=== PATIENT | male | born 1950 | race Caucasian/White ===

== ENCOUNTER 2017-11-15 16:42 | Outpatient (CLI) | payer OTHER ==
[2017-11-15 17:30] LABS: Prothrombin Time 13.5 SEC (12.0-14.7)
== END 2017-11-15 16:43 | disposition home or self-care (01) ==
LOC: LABBT 16:42
PROVIDERS: ATTEND Internal Medicine Cardiovascular Disease
DX: Z01.818 Encounter for other preprocedural examination (principal); I48.3 Typical atrial flutter
CPT/HCPCS: 85610

== ENCOUNTER → 2017-11-20 | Day surgery (SDC) | payer OTHER ==
[2017-11-19 15:04] VITALS: BMI 23.3
[~2017-11-20] MED LIST: PHENYLEPHRINE-NS 100 MCG/ML 10 ML SYRINGE ONE; PROPOFOL 0 ML ONE
--- NOTE | 2017-11-20 16:32 | EKG ---
Test Reason : PREOP GLADIS/CARRDIOVER Blood Pressure : / mmHG Vent. Rate : 045 BPM Atrial Rate : 045 BPM P-R Int : 190 ms QRS Dur : 120 ms QT Int : 514 ms P-R-T Axes : 090 -71 034 degrees QTc Int : 444 ms Marked sinus bradycardia Left anterior fascicular block Left ventricular hypertrophy with QRS widening Abnormal ECG When compared with ECG of 28-FEB-2017 14:55, No significant change was found Confirmed by DR. Olga SCHMITT (3) on 11/20/2017 4:31:55 PM Referred By: MARIELA Confirmed By:DR. Olga SCHMITT
--- NOTE | 2017-11-20 16:39 | DIS ---
The patient was not admitted. He was seen in the outpatient facility where we had planned to undergo electrocardioversion of his atrial flutter; however, when I arrived in the lab, he was already back in sinus rhythm. He was scheduled to have GLADIS and cardioversion. I spoke to the greige goods marker who also did not feel he needed a GLADIS at this time either. So no procedure was performed. The GLADIS and cardioversion were both canceled. He will be discharged to home without any interventions or procedures being performed. DISCHARGE MEDICATIONS: Will be the same except we will decrease the Coreg or carvedilol to 6.25 mg in the morning and 12.5 mg in the evening. We will discontinue his amiodarone. Otherwise, he will continue his other medications which include Xarelto 20 mg a day, Aldactone 25 mg a day, lisinopril 2.5 mg a day, Lipitor 40 mg a day. So, we will decrease his carvedilol to 6.25 mg in the morning and 12.5 in the evening. Calling the new prescription for the small dose of the medications. He will follow up with the greige goods marker as planned. He is planned to have a procedure on 12/07/2017 for ablation of the atrial flutter. His other diagnoses include COPD, history of hypertension, history of cardiomyopathy with decreased ejection fraction about 30%-35%. The other medications will be the same. His diagnoses also the same. Procedures in the hospital were none. He said he did have an EKG which shows sinus bradycardia with a heart rate of 45 beats per minute. There were no difficulties or complications during his procedure. He was not given any anesthesia. The patient will be discharged home and he will follow up with greige goods marker. VLAD
== END ==
LOC: CCL 07:42
PROVIDERS: ATTEND Internal Medicine Cardiovascular Disease
DX: I48.4 Atypical atrial flutter (principal); I25.10 Atherosclerotic heart disease of native coronary artery without angina pectoris; E78.5 Hyperlipidemia, unspecified; I11.0 Hypertensive heart disease with heart failure; I50.9 Heart failure, unspecified; J44.9 Chronic obstructive pulmonary disease, unspecified; Z87.891 Personal history of nicotine dependence; Z79.82 Long term (current) use of aspirin; Z79.899 Other long term (current) drug therapy; Z88.8 Allergy status to other drugs, medicaments and biological substances; Z98.890 Other specified postprocedural states; Z53.8 Procedure and treatment not carried out for other reasons
CPT/HCPCS: 93005; 93010; J2704

== ENCOUNTER 2017-12-11 15:19 | Inpatient (IN) | payer OTHER, MEDICARE ==
[2017-12-11] MEDS ORDERED: Mag-Al 1200 mg/1200 mg/30 ML UDCUP PO PRN (19:25)
[2017-12-11] MEDS ORDERED: Senokot 8.6 MG TAB PO PRN (19:25)
[2017-12-11] MEDS ORDERED: Calcium Carbonate 500 MG ChewTAB PO PRN (19:25)
[2017-12-11] MEDS ORDERED: Bisacodyl 5 MG TAB PO PRN (19:25)
[2017-12-11] MEDS ORDERED: Bisacodyl 10 MG SUPP PR PRN (19:25)
[2017-12-11] MEDS ORDERED: Acetaminophen 325 MG TAB PO PRN (19:25)
[2017-12-11] MEDS ORDERED: Diltiazem 125 MG in Sodium Chloride 0.9% 100 ML IVPB SCH (19:45)
[2017-12-11 20:30] VITALS: BMI 23.0
[2017-12-11 20:31] LABS: Troponin I 0.503 ng/mL (< 0.028)
[2017-12-11] MEDS ORDERED: Carvedilol 6.25 MG TAB PO SCH (21:15)
[2017-12-11] MEDS ORDERED: Rivaroxaban 10 MG TAB PO SCH (21:15)
[2017-12-11] MEDS: Zolpidem Tartrate 5 MG TAB PO PRN (22:19)
[2017-12-11 22:55] LABS: Troponin I 0.463 ng/mL (< 0.028)
[2017-12-12 04:44] LABS: #Eosinphils 0.3 thou/uL (0.0-0.7); #Lymphocytes 2.3 thou/uL (1.20-3.40); #Monocytes 0.7 thou/uL (0.11-0.59); #Neutrophils 4.7 thou/uL (1.40-6.50); %Basophils 0.4 % (0.0-1.0); %Eosinophils 3.7 % (0.0-10.0); %Lymphocytes 28.4 % (21.0-51.0); %Monocytes 9.1 % (0.0-10.0); %Neutrophils 58.4 % (42.0-75.0); Hemoglobin 14.2 g/dL (14.0-18.0); Mean Corpuscular HGB CONC 34.5 g/dL (32.0-36.0); Mean Corpuscular Hemoglobin 32.6 pg (27.0-31.0); Mean Corpuscular Volume 94.5 fl (80.0-94.0); Mean Platelet Volume 7.8 fL (7.4-10.4); Platelet Count 270 thou/uL (130-400); RBC Distribution Width 11.6 % (11.5-14.5); Red Blood Cell (RBC) Count 4.34 mill/uL (4.70-6.10)
[2017-12-12 05:04] LABS: Anion Gap 10 mmol/L (10-20); BUN (Urea Nitrogen) 20 mg/dL (8.4-25.7); Calc. Creatinine Clearance 86 mL/min (70-130); Calcium 8.9 mg/dL (7.8-10.44); Carbon Dioxide 24 mmol/L (23-31); Chloride 107 mmol/L (98-107); Estimated GFR-MDRD 84; Glucose 115 mg/dL (80-115); Sodium 137 mmol/L (136-145)
[2017-12-12] MEDS ORDERED: Prevnar 13-Val Conj/PF 0.5 ML SYRINGE IM ONE (09:00)
[2017-12-12] MEDS ORDERED: Amiodarone HCl 150 MG, Admixture Fee 1 EACH in Dextrose 5% in Water 100 ML IVPB SCH (10:00)
[2017-12-12] MEDS: Amiodarone HCl 450 MG, Admixture Fee 1 EACH in Dextrose 5% in Water 250 ML IVPB SCH ×2 (10:35→20:05)
[2017-12-12 10:44] LABS: ALT (SGPT) 11 U/L (8-55); AST (SGOT) 13 U/L (5-34); Albumin 3.4 g/dL (3.4-4.8); Alkaline Phosphatase 78 U/L (40-150); Bilirubin, Direct 0.1 mg/dL (0.1-0.3); Bilirubin, Total 0.3 mg/dL (0.2-1.2); Protein, Total 5.9 g/dL (5.8-8.1)
[2017-12-12] MEDS ORDERED: Carvedilol 6.25 MG TAB PO SCH ×2 (15:15→21:00)
[2017-12-12] MEDS ORDERED: Digoxin 0.5 MG/2 ML AMP SLOW IVP SCH (17:00)
[2017-12-12 21:09] LABS: Troponin I 0.403 ng/mL (< 0.028)
[2017-12-12] MEDS: Rivaroxaban 10 MG TAB PO SCH (21:36)
--- NOTE | 2017-12-12 21:44 | CON ---
ELECTROPHYSIOLOGY CONSULTATION This is an electrophysiology consultation dictated as scribe for Dr. Jarod Kirkpatrick. REFERRING PHYSICIAN: Megan Sylvester MD REASON FOR CONSULTATION: Atrial flutter with rapid ventricular response. HISTORY OF PRESENT ILLNESS: Mr. Corley is a patient well known to our clinic with a history of atrial fibrillation as well as atypical atrial flutter, who has had multiple ablations and most recently on 12/07/[address] Marquez. Unfortunately, Mr. Corley did begin to experience dizziness and heart raci ng, and presented to the emergency room in [place]. He was found to be in atrial flutter with RVR at that time and was transferred to [facility] in [place] for further evaluation. Mr. Corley has rather complicated longstanding history of atrial fibrillation. As mentioned above, he recently underwent redo ablation for his recurrent atypical flutter on 12/07/[address] Marquez. A t that time, an atrial tachycardia was mapped to the roof of the left atrium, which was ablated landon ring sinus rhythm. The right inferior pulmonary vein required re-isolation as well as the right infe rior pulmonary vein and posterior wall of the left atrium, which were found to have regained electric al connection. The right superior and left pulmonary veins remained electrically silent from prior a blations. The lateral wall of the left atrium was ablated and isolated. The left atrial appendage w as ablated and isolated. Finally, the coronary sinus was ablated and distally isolated. He received a total of 21 minutes RF energy lesions delivered, had an uneventful recovery, and was discharged th e following morning. He has been on amiodarone in the past for arrhythmia suppression and has requir ed cardioversion on multiple occasions. He has been on Xarelto since his ablation. REVIEW OF SYSTEMS: Positive for dizziness, heart racing, mild shortness of breath. Otherwise, 12-po int review of systems was conducted and is negative aside from the above mentioned. PAST MEDICAL HISTORY: 1. Atrial fibrillation, status post multiple prior ablations, most recently on 12/07/2017 for a recu rrent atypical flutter. 2. Cardiomyopathy with an LVEF initially at 30%-35%, now improved to 45%-50%. 3. Chronic obstructive pulmonary disease. 4. Tobacco habituation, recently quit. 5. Atypical flutter as mentioned. 6. Hypertension. 7. Left pneumothorax. 8. Laminectomy. 9. Hernia repair. ALLERGIES: None. FAMILY HISTORY: Positive for hypertension. Negative for sudden cardiac or early onset of kamryn nary artery disease. HOME MEDICATIONS: Carvedilol 6.25 q.a.m. and 12.5 p.o. at bedtime, Lipitor 40 mg daily, lisinopril 2 .5 mg daily, spironolactone 25 mg daily, Xarelto 20 mg p.o. at bedtime, Lipitor 40 mg q.a.m., aspirin 81 mg daily. PHYSICAL EXAMINATION: VITAL SIGNS: Most recent vital signs, temperature 98.3, pulse 110, blood pressure 132/96, respiratio ns 18, oxygen saturation 98% on room air. GENERAL: Alert, oriented, in no apparent distress. HEENT: Speech is clear. Affect is appropriate. NECK: Supple without jugular venous distention. Carotids are without bruit. There is no lymphadeno dee dee. Thyroid is nonpalpable. PULMONARY: Lungs are clear to auscultation bilaterally. Respirations are even and unlabored. CARDIOVASCULAR: Heart rate is rapid and irregular. No significant murmur, rub, or gallop. EXTREMITIES: Warm and dry to touch without clubbing, cyanosis, or edema. ABDOMEN: Exam is benign. Positive bowel tones are noted throughout. NEUROLOGIC: Cranial nerves II-XII are grossly intact and nonfocal. DATABASE: EKG and telemetry were all personally reviewed and revealed atypical atrial flutter with v ariable AV conduction and rapid ventricular rates. Currently sustaining with heart rate approximatel y at 110, occasionally spiking to 140 beats per minute. LABORATORY DATA: Hemoglobin 14.2, hematocrit 41. Chemistry and electrolytes were all within normal limits. Serial troponins were conducted and peaked at 0.503 before trending down. TSH is 1.0556. IMPRESSION: 1. Recurrent atrial arrhythmias including atrial fibrillation and atypical atrial flutter with recen t ablation on 12/07/2017. Now presented in atrial flutter with rapid ventricular response as early r ecurrence post ablation. 2. Recent redo pulmonary vein antrum isolation on 12/07/2017 including re-isolation of the right inf erior pulmonary vein, posterior wall of the left atrium, and right inferior pulmonary vein as well as lateral wall of the left atrium. Left atrial appendage was ablated and isolated as well as the kamryn nary sinus. 3. Oral anticoagulation on Xarelto, lifelong, given left atrial appendage isolation and ablation. PLAN: An amiodarone bolus of 150 mg was given and amiodarone drip was started per protocol at 1 mg p er minute for 6 hours and then reduced to 0.5 mg per minute. We will continue with rate control at t his time, continue the oral anticoagulation, and plan for cardioversion prior to discharge if the pat ient remains in atrial flutter/atrial fibrillation. Upon discharge, he will require continued amioda aman therapy while he recovers from this most recent ablation. Thank you for allowing us to participate in the care of this patient.
[2017-12-12] MEDS: Zolpidem Tartrate 5 MG TAB PO PRN (23:19)
[2017-12-12] MEDS: Digoxin 0.5 MG/2 ML AMP SLOW IVP SCH (23:19)
--- NOTE | 2017-12-12 23:21 | PDOC.PN ---
- Subjective Encounter Start Date: 12/12/17 Encounter Start Time: 11:00 Subjective: f/u recurrent afib with RVR. nsg notes rev, viviana ovn, no new c/o -: currently no palpitations, CP, SOB - Objective Resuscitation Status: Resuscitation Status FULL:Full Resuscitation Vital Signs & Weight: Vital Signs (12 hours) Temp Pulse Resp BP BP Pulse Ox 12/12/17 21:36 147/84 H 12/12/17 17:01 125 H 12/12/17 15:19 98.3 F 110 H 18 132/96 H 98 12/12/17 15:16 132/96 H 12/12/17 11:26 98.9 F 77 17 132/65 96 Weight Weight 169 lb 14.4 oz I&O: 12/11/17 12/12/17 12/13/17 06:59 06:59 06:59 Intake Total 295 Output Total 300 650 Balance -5 -650 Result Diagrams: 12/13/17 04:00 12/12/17 04:00 Phys Exam - Physical Examination Constitutional: NAD HEENT: moist MMs, sclera anicteric Neck: no nodes, no JVD Respiratory: no wheezing, no rales, no rhonchi, clear to auscultation bilateral Cardiovascular: no rub Musculoskeletal: no edema, pulses present Neurological: moves all 4 limbs Psychiatric: normal affect, A&O x 3 Dx/Plan - Plan * recurrent afib with RVR * apprec card c/s * apprec EP C/s * on adm was initially on diltiazem which has been converted/ transitioned to amiodarone * continue on tele * hemodynamically stable diet: cardiac activity: as rodriguez dvt ppx Review of Systems - Medications/Allergies Allergies/Adverse Reactions: Allergies Allergy/AdvReac Type Severity Reaction Status Date / Time albuterol [From Combivent] Allergy SOB Verified 11/19/17 08:52 ipratropium [From Combivent] Allergy SOB Verified 11/19/17 08:52 Medications: Current Medications Acetaminophen (Tylenol) 650 mg PO Q4H PRN PRN Reason: Headache/Fever or Pain Al Hydroxide/Mg Hydroxide (Maalox) 30 ml PO Q6H PRN PRN Reason: Heartburn or Indigestion Bisacodyl (Dulcolax) 10 mg PO DAILYPRN PRN PRN Reason: Constipation Bisacodyl (Dulcolax) 10 mg CA Q24H PRN PRN Reason: Constipation Calcium Carbonate (Tums) 1,000 mg PO Q4H PRN PRN Reason: Heartburn or Indigestion Carvedilol (Coreg) 12.5 mg PO HS [facility] Last Admin: 12/12/17 21:36 Dose: 12.5 mg Carvedilol (Coreg) 12.5 mg PO HS ANGIE Digoxin (Lanoxin) 0.25 mg SLOW IVP 0500,2300 ANGIE Stop: 12/13/17 05:01 Last Admin: 12/12/17 23:19 Dose: 0.25 mg Digoxin (Lanoxin) 0.125 mg PO QAM ANGIE Amiodarone HCl 450 mg/Miscellaneous Medication 1 each/ Dextrose/Water 259 mls @ 0 mls/hr IVPB INF ANGIE; As Directed PRN Reason: Protocol Last Admin: 12/12/17 20:05 Dose: 259 mls Rivaroxaban (Xarelto) 20 mg PO HS [facility] Last Admin: 12/12/17 21:36 Dose: 20 mg Senna (Senokot) 2 tab PO HSPRN PRN PRN Reason: Constipation Zolpidem Tartrate (Ambien) 5 mg PO HSPRN PRN PRN Reason: Insomnia Last Admin: 12/12/17 23:19 Dose: 5 mg
[2017-12-12 23:40] LABS: Critical Call Chem Troponin I RESULT DECREASING; Troponin I 0.388 ng/mL (< 0.028)
[2017-12-13 04:59] LABS: #Eosinphils 0.3 thou/uL (0.0-0.7); #Lymphocytes 2.6 thou/uL (1.20-3.40); #Monocytes 0.8 thou/uL (0.11-0.59); #Neutrophils 5.7 thou/uL (1.40-6.50); %Basophils 0.4 % (0.0-1.0); %Eosinophils 3.5 % (0.0-10.0); %Lymphocytes 27.6 % (21.0-51.0); %Monocytes 8.6 % (0.0-10.0); Hemoglobin 14.5 g/dL (14.0-18.0); Mean Corpuscular Hemoglobin 31.9 pg (27.0-31.0); Mean Corpuscular Volume 93.8 fl (80.0-94.0); Mean Platelet Volume 7.6 fL (7.4-10.4); Platelet Count 280 thou/uL (130-400); RBC Distribution Width 11.5 % (11.5-14.5); Red Blood Cell (RBC) Count 4.54 mill/uL (4.70-6.10); White Blood Cell (WBC) Count 9.4 thou/uL (4.8-10.8)
[2017-12-13] MEDS: Digoxin 0.5 MG/2 ML AMP SLOW IVP SCH (05:15)
[2017-12-13 05:19] LABS: Anion Gap 10 mmol/L (10-20); BUN (Urea Nitrogen) 19 mg/dL (8.4-25.7); Calc. Creatinine Clearance 91 mL/min (70-130); Calcium 9.5 mg/dL (7.8-10.44); Carbon Dioxide 24 mmol/L (23-31); Chloride 106 mmol/L (98-107); Estimated GFR-MDRD 90; Glucose 95 mg/dL (80-115); Potassium 4.2 mmol/L (3.5-5.1); Sodium 136 mmol/L (136-145)
[2017-12-13] MEDS: Digoxin 0.125 MG TAB PO SCH (08:19)
[2017-12-13] MEDS: Amiodarone 200 MG TAB PO SCH ×2 (08:36→20:34)
--- NOTE | 2017-12-13 08:45 | PRG ---
DATE OF SERVICE: 12/13/2017 REFERRING PHYSICIAN: Dr. Megan Sylvester SUBJECTIVE: Mr. Corley has less palpations today. He denies dizziness or loss of consciousness. He i s still on IV amiodarone drip. He has no dizziness, loss of consciousness, no stroke-like symptoms, no bleeding issues. OBJECTIVE: VITAL SIGNS: Blood pressure is 150/77, heart rate 88, respiration 17, temperature 97.8 degrees Fahre nheit. GENERAL: He is an alert and oriented man in no apparent distress. NECK: Supple. Jugular veins not distended. CHEST: Coarse without crackles. CARDIOVASCULAR: Heart sounds are irregularly irregular. CARDIOVASCULAR: S1, S2, variable. No murmur or gallop. ABDOMEN: Benign. Bowel sounds positive. EXTREMITIES: Lower extremity without edema, clubbing or cyanosis. DATABASE: The telemetry strips reveal atrial flutter with controlled ventricular rates in the 60s. LABORATORY DATA: White count is 9.4, hemoglobin 14 and 40.5, platelet count is 280. Sodium 136, pot assium 4.2, BUN is 19, creatinine 0.85. Troponins are 0.04 and 0.04 consecutively. ASSESSMENT AND PLAN: Mr. Jaime is a 67-year-old man with history of paroxysmal atrial arrhythmias, ca rdiomyopathy with a prior LVEF 30-35% and improving to 45-50%. He has undergone recent pulmonary isidro ous antrum isolation on 12/07/2017. He was placed on IV amiodarone drip and his rate is now well con trolled. He has not stopped taking Xarelto. Has a recent early recurrence. The patient has recent ablation and the recurrence of arrhythmia. I think cardioversion on amiodarone is reasonable. We ca n consider transition to Multaq. I would like to continue amiodarone loading for 1 more day and cardioversion planned Sunday.
--- NOTE | 2017-12-13 09:35 | PDOC.PN ---
- Subjective Encounter Start Date: 12/13/17 Encounter Start Time: 09:33 Mr. Corley was seen today in follow-up. He had a little dizziness last night, but none this morning. He denies chest pain or dyspnea. - Objective Resuscitation Status: Resuscitation Status FULL:Full Resuscitation MAR Reviewed: Yes Vital Signs & Weight: Vital Signs (12 hours) Temp Pulse Resp BP BP Pulse Ox 12/13/17 08:19 79 12/13/17 08:16 97.6 F 79 16 139/79 95 12/13/17 05:15 88 12/13/17 03:45 97.8 F 88 17 158/77 H 95 12/12/17 23:19 125 H 12/12/17 21:36 147/84 H Weight Weight 168 lb 1.6 oz I&O: 12/12/17 12/13/17 12/14/17 06:59 06:59 06:59 Intake Total 295 1160 Output Total 300 2300 325 Balance -5 -1140 -325 Result Diagrams: 12/13/17 04:00 12/13/17 04:00 Phys Exam - Physical Examination HEENT: PERRLA, sclera anicteric Respiratory: no wheezing, no rales, no rhonchi Cardiovascular: no significant murmur, no rub, irregular Gastrointestinal: soft, non-tender, positive bowel sounds Musculoskeletal: no edema Dx/Plan (1) Atrial fibrillation with RVR Code(s): I48.91 - UNSPECIFIED ATRIAL FIBRILLATION Status: Acute Comment: NSR post cardioversion, continue Amiodarone 200mg daily, Diltiazem 120mg BID and Coreg, continue Xarelto (2) Ischemic cardiomyopathy Code(s): I25.5 - ISCHEMIC CARDIOMYOPATHY Status: Chronic Comment: EF 30-35% from echo 12/21/16, GLADIS 02/28/17 - EF 45%, continue Lisinopril, Coreg, ASA - Plan * AFIB with RVR- his heart rate is controlled- plan is for cardioversion tomorrow * CAD- stable * Chronic systolic heart failure- compensated * HTN - blood pressure is stable .
--- NOTE | 2017-12-13 20:22 | EKG ---
Test Reason : STAT Blood Pressure : / mmHG Vent. Rate : 116 BPM Atrial Rate : 300 BPM P-R Int : 000 ms QRS Dur : 120 ms QT Int : 338 ms P-R-T Axes : 000 -64 089 degrees QTc Int : 469 ms Atrial flutter with variable A-V block Left anterior fascicular block Nonspecific ST and T wave abnormality Abnormal ECG When compared with ECG of 11-DEC-2017 15:26, (Unconfirmed) No significant change was found Confirmed by MURRAY SALEEM, SMarkel (4) on 12/13/2017 8:22:03 PM Referred By: JAYNA Confirmed By:DR. Bety GAO MD
--- NOTE | 2017-12-13 20:26 | EKG ---
Test Reason : Blood Pressure : / mmHG Vent. Rate : 073 BPM Atrial Rate : 277 BPM P-R Int : 000 ms QRS Dur : 116 ms QT Int : 394 ms P-R-T Axes : 092 -65 078 degrees QTc Int : 434 ms Atrial flutter Left anterior fascicular block Nonspecific ST abnormality Abnormal ECG When compared with ECG of 12-DEC-2017 17:24, (Unconfirmed) Vent. rate has decreased BY 43 BPM Confirmed by MURRAY SALEEM, SMarkel (4) on 12/13/2017 8:26:23 PM Referred By: KIM Confirmed By:DR. Bety GAO MD
[2017-12-13] MEDS: Rivaroxaban 10 MG TAB PO SCH (20:34)
[2017-12-13] MEDS ORDERED: Carvedilol 6.25 MG TAB PO SCH (21:00)
[2017-12-13] MEDS: Zolpidem Tartrate 5 MG TAB PO PRN (22:26)
[2017-12-14 03:54] LABS: #Eosinphils 0.3 thou/uL (0.0-0.7); #Lymphocytes 2.5 thou/uL (1.20-3.40); #Monocytes 0.7 thou/uL (0.11-0.59); #Neutrophils 4.6 thou/uL (1.40-6.50); %Basophils 0.4 % (0.0-1.0); %Eosinophils 3.2 % (0.0-10.0); %Lymphocytes 30.5 % (21.0-51.0); %Neutrophils 56.9 % (42.0-75.0); Hemoglobin 14.5 g/dL (14.0-18.0); Mean Corpuscular HGB CONC 33.8 g/dL (32.0-36.0); Mean Corpuscular Hemoglobin 31.7 pg (27.0-31.0); Mean Corpuscular Volume 93.7 fl (80.0-94.0); Mean Platelet Volume 7.6 fL (7.4-10.4); Platelet Count 282 thou/uL (130-400); RBC Distribution Width 11.7 % (11.5-14.5); Red Blood Cell (RBC) Count 4.58 mill/uL (4.70-6.10)
[2017-12-14 04:09] LABS: Anion Gap 12 mmol/L (10-20); BUN (Urea Nitrogen) 19 mg/dL (8.4-25.7); Calc. Creatinine Clearance 80 mL/min (70-130); Calcium 9.5 mg/dL (7.8-10.44); Carbon Dioxide 24 mmol/L (23-31); Chloride 104 mmol/L (98-107); Estimated GFR-MDRD 79; Glucose 103 mg/dL (80-115); Potassium 4.1 mmol/L (3.5-5.1); Sodium 136 mmol/L (136-145)
[2017-12-14] MEDS: Amiodarone 200 MG TAB PO SCH (10:26)
[2017-12-14] MEDS: Digoxin 0.125 MG TAB PO SCH (10:26)
--- NOTE | 2017-12-14 10:30 | PDOC.PN ---
- Subjective Encounter Start Date: 12/14/17 Encounter Start Time: 10:28 Mr. Corley was seen today in follow-up. He is frustrated about his condition. He has converted back to sinus today. - Objective Resuscitation Status: Resuscitation Status FULL:Full Resuscitation MAR Reviewed: Yes Vital Signs & Weight: Vital Signs (12 hours) Temp Pulse Resp BP Pulse Ox 12/14/17 10:26 53 L 12/14/17 08:01 98.6 F 61 16 128/67 97 12/14/17 08:00 98.6 F 61 16 12/14/17 04:59 97.8 F 51 L 18 124/65 96 Weight Weight 168 lb 1.6 oz I&O: 12/13/17 12/14/17 12/15/17 06:59 06:59 06:59 Intake Total 1160 480 Output Total 2300 650 Balance -1140 -170 Result Diagrams: 12/14/17 03:13 12/14/17 03:13 Phys Exam - Physical Examination HEENT: PERRLA Respiratory: no wheezing, no rales, no rhonchi, clear to auscultation bilateral Cardiovascular: RRR, no significant murmur, no rub Gastrointestinal: soft, non-tender, positive bowel sounds Musculoskeletal: no edema Dx/Plan (1) Atrial fibrillation with RVR Code(s): I48.91 - UNSPECIFIED ATRIAL FIBRILLATION Status: Acute Comment: NSR post cardioversion, continue Amiodarone 200mg daily, Diltiazem 120mg BID and Coreg, continue Xarelto (2) Ischemic cardiomyopathy Code(s): I25.5 - ISCHEMIC CARDIOMYOPATHY Status: Chronic Comment: EF 30-35% from echo 12/21/16, GLADIS 02/28/17 - EF 45%, continue Lisinopril, Coreg, ASA (3) Chronic obstructive pulmonary disease (COPD) Status: Acute (4) Hypertension Code(s): I10 - ESSENTIAL (PRIMARY) HYPERTENSION Status: Acute - Plan * AFIB- patient was scheduled to have a cardioversion today, but he converted back to sinus spontaneously * Will await further recommendations from EP. * HTN- blood pressure is controlled * COPD- stable
--- NOTE | 2017-12-14 14:45 | PDOC.CTH ---
<Susana Vaughn - Last Filed: 12/14/17 14:41> Cardiology Progress Note - Subjective EP progress note: Patient seen and evaluated. Starting feeling better last evening. no cardiac complaints today. Eager to go home. 10 point ROS unremarkable. - Objective Vital Signs Temp Pulse Resp BP Pulse Ox 12/14/17 11:02 98.0 F 16 130/71 98 12/14/17 10:26 53 L 12/14/17 08:01 98.6 F 61 16 128/67 97 12/14/17 08:00 98.6 F 61 16 12/14/17 04:59 97.8 F 51 L 18 124/65 96 Weight 168 lb 1.6 oz 12/13/17 12/14/17 12/15/17 06:59 06:59 06:59 Intake Total 1160 480 Output Total 2300 650 Balance -1140 -170 - Physical Examination General/Neuro: alert & oriented x3, NAD Neck: carotid US brisk, no JVD present Lungs: unlabored respirations Heart: PMI normal, RRR Abdomen: NT/ND, soft - Telemetry Telemetry Rhythm: NSR with occ. PAC - Labs Result Diagrams: 12/14/17 03:13 12/14/17 03:13 Troponin/CKMB Troponin I 0.388 ng/mL (< 0.028) H* 12/12/17 23:06 - Assessment/Plan 1. Early recurrence of atrial flutter/fibrillation with RVR. Loaded on amiodarone. rate controlled with digoxin. Converted to NSR last night around 1830. Now rates in 50s & digoxin withheld this AM. Recommend DC without digoxin. Amiodarone 200mg BID x 2 weeks, then 200mg daily. 2. OAC- continue indefinitely given history of left atrial appendage isolation & ablation. Ok for DC by EP. 4-6 week follow up requested. <Jarod Kirkpatrick - Last Filed: 12/14/17 16:15> Cardiology Progress Note - Objective Vital Signs Temp Pulse Resp BP Pulse Ox 12/14/17 15:58 98.5 F 61 16 136/70 98 12/14/17 11:02 98.0 F 16 130/71 98 12/14/17 10:26 53 L 12/14/17 08:01 98.6 F 61 16 128/67 97 12/14/17 08:00 98.6 F 61 16 12/14/17 04:59 97.8 F 51 L 18 124/65 96 Weight 168 lb 1.6 oz 12/13/17 12/14/17 12/15/17 06:59 06:59 06:59 Intake Total 1160 480 Output Total 2300 650 Balance -1140 -170 - Labs Result Diagrams: 12/14/17 03:13 12/14/17 03:13 Troponin/CKMB Troponin I 0.388 ng/mL (< 0.028) H* 12/12/17 23:06 Attending Addendum - Attending Addendum Date/Time: 12/14/17 1619 I personally evaluated the patient and discussed the management with Ms Vaughn. I agree with the History, Examination, Assessment and Plan documented above with any addition or exceptions noted below.
[2017-12-14 16:01] VITALS: BP 136/70; TEMP 98.5
--- NOTE | 2017-12-14 22:15 | EKG ---
Test Reason : Blood Pressure : / mmHG Vent. Rate : 057 BPM Atrial Rate : 057 BPM P-R Int : 194 ms QRS Dur : 120 ms QT Int : 452 ms P-R-T Axes : 088 -69 026 degrees QTc Int : 439 ms Sinus bradycardia Left anterior fascicular block Abnormal ECG When compared with ECG of 13-DEC-2017 06:36, Sinus rhythm has replaced Atrial flutter Nonspecific T wave abnormality now evident in Inferior leads Confirmed by MURRAY SALEEM, DR. Albert (4) on 12/14/2017 10:15:07 PM Referred By: KIM Confirmed By:DR. Bety GAO MD
--- NOTE | 2017-12-15 02:47 | DIS ---
DATE OF ADMISSION: 12/11/2017 DATE OF DISCHARGE: 12/14/2017 DISCHARGE DISPOSITION: Home. PRIMARY DISCHARGE DIAGNOSES: 1. Atrial fibrillation. 2. History of cardiomyopathy with an ejection fraction of 45%-50%. 3. Chronic obstructive pulmonary disease. 4. Hypertension. DISCHARGE MEDICATIONS: Include amiodarone 200 mg twice a day for 2 weeks followed by 200 mg daily, a spirin 81 mg daily, Lipitor 40 mg daily, carvedilol 12.5 mg at bedtime, lisinopril 2.5 mg daily, Xare lto 20 mg at bedtime, and Aldactone 25 mg a day. CODE STATUS: FULL CODE. ALLERGIES: ALBUTEROL and IPRATROPIUM. HOSPITAL COURSE: Mr. Corley is a 67-year-old gentleman who presented to the emergency room in atrial f ibrillation with rapid ventricular response. He was admitted and started on IV Cardizem and then swi tched to amiodarone. The plan was for the patient to undergo elective cardioversion after he was sta bilized on the amiodarone; however, the patient converted spontaneously to sinus rhythm and the hope is that he will continue in sinus rhythm on amiodarone. He is to continue Xarelto for stroke prevent ion and will follow up with Dr. Kirkpatrick in the outpatient setting as well as his primary entry level staff accountant Dr Markel Sylvester.
== END 2017-12-14 16:59 | disposition home or self-care (01) | DRG 310 ==
LOC: ERS 15:19 → 2NO 16:33
PROVIDERS: ADMIT Emergency Medicine; ATTEND Emergency Medicine
DX: I48.0 Paroxysmal atrial fibrillation (principal); J44.9 Chronic obstructive pulmonary disease, unspecified; I10 Essential (primary) hypertension; I25.5 Ischemic cardiomyopathy
CPT/HCPCS: 36415; 80048; 80076; 83735; 84443; 84484; 85025; 93005; 93010; 96365; 96366; J0282; J1160; J7050; J7070

== ENCOUNTER 2017-12-27 12:40 | Emergency (ER) | payer OTHER, MEDICARE ==
[2017-12-27 13:19] LABS: #Eosinphils 0.1 thou/uL (0.0-0.7); #Lymphocytes 2.5 thou/uL (1.20-3.40); #Monocytes 0.8 thou/uL (0.11-0.59); #Neutrophils 5.2 thou/uL (1.40-6.50); %Basophils 0.6 % (0.0-1.0); %Lymphocytes 29.1 % (21.0-51.0); %Monocytes 8.8 % (0.0-10.0); %Neutrophils 60.5 % (42.0-75.0); Hemoglobin 14.3 g/dL (14.0-18.0); Mean Corpuscular HGB CONC 33.7 g/dL (32.0-36.0); Mean Corpuscular Hemoglobin 31.7 pg (27.0-31.0); Mean Corpuscular Volume 94.1 fl (80.0-94.0); Mean Platelet Volume 7.4 fL (7.4-10.4); Platelet Count 296 thou/uL (130-400); RBC Distribution Width 11.7 % (11.5-14.5); White Blood Cell (WBC) Count 8.5 thou/uL (4.8-10.8)
--- NOTE | 2017-12-27 13:28 | RAD ---
CHEST 1 VIEW: HISTORY: Chest pain. Dyspnea. COMPARISON: 12/17/16. FINDINGS: Cardiac silhouette is magnified and enlarged. Left hemidiaphragm is now elevated with atelectasis at the left base. Mediastinum remains midline. No lobar consolidation or pneumothorax are apparent. IMPRESSION: Interval change in left hemidiaphragm with significant elevation and atelectasis at the left base. P lease consider CT chest for evaluation mediastinum and the possibility of a mass resulting in diaphra gmatic paralysis. POS: SERGIO
[2017-12-27 13:42] LABS: ALT (SGPT) 15 U/L (8-55); AST (SGOT) 12 U/L (5-34); Albumin 4.3 g/dL (3.4-4.8); Alkaline Phosphatase 78 U/L (40-150); Anion Gap 11 mmol/L (10-20); BUN (Urea Nitrogen) 13 mg/dL (8.4-25.7); Bilirubin, Total 0.9 mg/dL (0.2-1.2); Calc. Creatinine Clearance 0 mL/min (70-130); Calcium 9.6 mg/dL (7.8-10.44); Carbon Dioxide 27 mmol/L (23-31); Chloride 101 mmol/L (98-107); Estimated GFR-MDRD 69; Globulin 2.7 g/dL (2.4-3.5); Glucose 106 mg/dL (80-115); Potassium 4.5 mmol/L (3.5-5.1); Sodium 134 mmol/L (136-145)
[2017-12-27 13:46] LABS: CKMB 1.1 ng/mL (0-6.6); Troponin I Less than 0.010 ng/mL (< 0.028)
[2017-12-27 13:55] LABS: Magnesium 2.2 mg/dL (1.6-2.6)
[2017-12-27] MEDS ORDERED: Dicyclomine 20 MG TAB ONE (14:15)
--- NOTE | 2017-12-27 15:07 | CT ---
CT CHEST WITH IV CONTRAST: HISTORY: Abnormal chest radiograph. Elevated hemidiaphragm. COMPARISON: Chest radiograph same date. FINDINGS: Elevation of left hemidiaphragm is confirmed with linear atelectasis at the left base. No mediastina l mass or adenopathy are apparent. There is bovine origin of the great vessels at the aortic arch with aortic calcification. Small cyst ic lesion within the right thyroid gland. Lungs are hyperinflated. Within th partially visualized upper abdomen, a heterogeneous mass at the left adrenal gland is 2.9 c m greatest diameter. A 1.8 cm heterogeneous mass arises from the right adrenal glands. IMPRESSION: 1. Left hemidiaphragm elevation has occurred in a 1-year interval. CT chest shows no apparent cause . 2. Bilateral adrenal masses, measuring up to 2.9 cm on the left. The size of he left adrenal mass a nd increased density argue against benign adenomas, although a benign process cannot be excluded on t his exam. Please consider radionuclide PET scan to evaluate for hypermetabolic activity of the adren al masses or dedicated CT of the adrenal glands, with and without IV contrast, for better characteriz e. 3. Chronic obstructive pulmonary disease. 4. Atherosclerosis. POS: SERGIO
[2017-12-27] MEDS ORDERED: Iopamidol 370 76% 100 ML VIAL ONE (16:17)
== END 2017-12-27 13:25 | disposition home or self-care (01) ==
LOC: ERS 12:40
DX: R00.1 Bradycardia, unspecified (principal); R19.7 Diarrhea, unspecified; E27.9 Disorder of adrenal gland, unspecified; R11.2 Nausea with vomiting, unspecified; J44.9 Chronic obstructive pulmonary disease, unspecified; K21.9 Gastro-esophageal reflux disease without esophagitis; Z87.891 Personal history of nicotine dependence; Z79.01 Long term (current) use of anticoagulants; Z79.82 Long term (current) use of aspirin; Z79.899 Other long term (current) drug therapy
CPT/HCPCS: 36415; 71045; 71260; 80053; 82553; 83690; 83735; 83880; 84484; 85025; 93005

== ENCOUNTER 2019-10-21 22:19 | Inpatient (IN) | payer MEDICARE ==
[2019-10-21] MEDS ORDERED: Midazolam HCl 5 mg/ml Vial ONE (22:22)
[2019-10-21 22:45] LABS: #Basophils 0.1 thou/uL (0.0-0.2); #Eosinphils 0.1 thou/uL (0.0-0.7); #Lymphocytes 2.8 thou/uL (1.20-3.40); #Neutrophils 7.9 thou/uL (1.40-6.50); %Basophils 0.7 % (0.0-1.0); %Eosinophils 0.8 % (0.0-10.0); %Lymphocytes 23.2 % (21.0-51.0); %Monocytes 8.1 % (0.0-10.0); %Neutrophils 67.1 % (42.0-75.0); Hemoglobin 15.2 g/dL (14.0-18.0); Mean Corpuscular HGB CONC 33.4 g/dL (32.0-36.0); Mean Corpuscular Volume 95.8 fL (78.0-98.0); Mean Platelet Volume 8.4 fL (7.4-10.4); Platelet Count 261 thou/uL (130-400); RBC Distribution Width 12.5 % (11.5-14.5); Red Blood Cell (RBC) Count 4.75 mill/uL (4.70-6.10); White Blood Cell (WBC) Count 11.8 thou/uL (4.8-10.8)
--- NOTE | 2019-10-21 22:49 | RAD ---
RADIOGRAPH CHEST 1 VIEW: DATE: 10/21/2019 HISTORY: 69-year-old male with chest pain FINDINGS: There is no airspace density, pulmonary edema, or pneumothorax. The lateral costophrenic angles are n ot effaced. Defibrillation paddles overlie the chest bilaterally. IMPRESSION: No acute pulmonary findings.
[2019-10-21 23:08] LABS: ALT (SGPT) 18 U/L (8-55); AST (SGOT) 14 U/L (5-34); Albumin 4.3 g/dL (3.4-4.8); Alkaline Phosphatase 75 U/L (40-110); Anion Gap 15 mmol/L (10-20); BUN (Urea Nitrogen) 24 mg/dL (8.4-25.7); Bilirubin, Total 0.8 mg/dL (0.2-1.2); CK (CPK) 77 U/L (30-200); Calc. Creatinine Clearance 0 mL/min (70-130); Calcium 9.7 mg/dL (7.8-10.44); Carbon Dioxide 26 mmol/L (23-31); Chloride 103 mmol/L (98-107); Estimated GFR-MDRD 27; Globulin 2.5 g/dL (2.4-3.5); Glucose 95 mg/dL (80-115); Potassium 4.5 mmol/L (3.5-5.1); Protein, Total 6.8 g/dL (5.8-8.1); Sodium 139 mmol/L (136-145)
[2019-10-21] MEDS ORDERED: Aspirin Chewable 81 MG TAB ONE (23:10)
[2019-10-21 23:28] LABS: CKMB 3.3 ng/mL (0-6.6)
[2019-10-21] MEDS ORDERED: Sodium Chloride 0.9% 1,000 ML IV SCH (23:59)
[2019-10-21] MEDS ORDERED: Enoxaparin Sodium 60 MG/0.6 ML SYRINGE SC SCH (23:59)
--- NOTE | 2019-10-22 00:51 | HP ---
CHIEF COMPLAINT: Chest pain. HISTORY OF PRESENT ILLNESS: Mr. Jaime is a 69-year-old male with past medical history of cardiac arrhythmias, atrial flutter, SVT, atrial fibrillation, hypertension, hyperlipidemia, and GERD, presents to the emergency room with chest pain, pressure in nature. In the emergency room, the patient was found to be in wide-complex tachycardia, hypotensive, urgent cardioversion was performed by the ED physician. The patient was converted to sinus rhythm. Current blood pressure is 107/64. Heart rate is 67. The patient's oxygen saturation is 100% on 2 L/minute nasal cannula. The patient is feeling better already. The patient is going to be admitted to hospital for further management. PAST MEDICAL HISTORY: 1. Atrial fibrillation, flutter, SVT. 2. Pneumothorax. 3. COPD. 4. GERD. 5. Hypertension. 6. Hyperlipidemia. PAST SURGICAL HISTORY: 1. Laminectomy. 2. Tonsillectomy. 3. Hernia repair. 4. Vasectomy. 5. Hand surgery. 6. Colonoscopy. 7. Cataract surgery. SOCIAL HISTORY: The patient currently uses tobacco. Smokes cigarettes. The patient denies alcohol use or drug use. Lives at home alone. FAMILY HISTORY: Reviewed and noncontributory. ALLERGIES: NO KNOWN ALLERGIES. HOME MEDICATIONS: Please see home medication reconciliation form for updated medications. The home medication includes metoprolol and amiodarone, will need to be verified. The patient denies being on anticoagulants this time. REVIEW OF SYSTEMS: Review of 14 systems negative except what is mentioned in history of present illness. PHYSICAL EXAMINATION: GENERAL: The patient is awake, alert, oriented, does not appear to be in acute distress. VITAL SIGNS: Blood pressure 107/64, pulse is 75, respiratory rate is 16, oxygen saturation 100%, and temperature is 98. HEAD AND NECK: Normocephalic and atraumatic. NECK: Supple. No JVD. CHEST: Fair bilateral air entry. HEART: S1 and S2, regular. ABDOMEN: Soft, nontender. Bowel sounds present. NEUROLOGIC: Awake, alert, oriented. No focal deficits. PSYCH: Unable to assess. EXTREMITIES: No clubbing or cyanosis. LABORATORY DATA: Electrolytes; creatinine is elevated 2.38, baseline creatinine is 1.0. Troponin 0.03. ASSESSMENT: 1. Acute chest pain. 2. Acute renal failure. 3. Unstable wide complex/ventricular tachycardia, status post cardioversion. 4. Hypertension. 5. Hyperlipidemia. 6. Chronic obstructive pulmonary disease. 7. History of cardiac arrhythmias. PLAN: 1. Admit. 2. Serial troponins. 3. Consult the patient's cardiac folding machine feeder for evaluation and further recommendations. 4. Reconcile home medications. 5. DVT prophylaxis as appropriate. 6. Expected length of stay 2 midnights or more. Job ID: [id number]
[2019-10-22] MEDS ORDERED: Melatonin 3 MG TAB PO PRN (01:07)
[2019-10-22] MEDS ORDERED: diphenhydrAMINE 25 MG CAP PO SCH (01:15)
[2019-10-22] MEDS ORDERED: Melatonin 3 MG TAB PO SCH (01:15)
[2019-10-22 01:25] VITALS: BMI 22.2
[2019-10-22 05:27] LABS: Anion Gap 13 mmol/L (10-20); BUN (Urea Nitrogen) 26 mg/dL (8.4-25.7); Calc. Creatinine Clearance 47 mL/min (70-130); Calcium 8.8 mg/dL (7.8-10.44); Carbon Dioxide 22 mmol/L (23-31); Chloride 107 mmol/L (98-107); Estimated GFR-MDRD 45; Glucose 84 mg/dL (80-115); Potassium 4.7 mmol/L (3.5-5.1); Sodium 137 mmol/L (136-145)
[2019-10-22] MEDS: Famotidine 20 MG TAB PO SCH (08:21)
[2019-10-22] MEDS ORDERED: Aspirin 325 mg Enteric Coated Tablet PO SCH (09:00)
[2019-10-22] MEDS ORDERED: Communication Order-Pharmacy FS SCH (09:45)
[2019-10-22] MEDS ORDERED: Iopamidol 370 76% 100 ML VIAL ONE (09:55)
[2019-10-22] MEDS ORDERED: Iopamidol 370 76% 50 ML VIAL FS ONE (09:55)
[2019-10-22] MEDS ORDERED: Dexamethasone 20 MG/5 ML VIAL ONE (10:45)
[2019-10-22] MEDS ORDERED: Heparin 10,000 UNITS/1 ML VIAL ONE (11:03)
[2019-10-22] MEDS ORDERED: Nitroglycerin 100MG/250ML BOT 250 ML ONE (11:03)
[2019-10-22] MEDS ORDERED: Verapamil 5 MG/2 ML VIAL ONE (11:03)
[2019-10-22] MEDS: Sodium Chloride 0.9% 1,000 ML IV SCH ×2 (11:05→18:02)
[2019-10-22] MEDS ORDERED: Amiodarone 200 MG TAB PO SCH (11:45)
[2019-10-22] MEDS ORDERED: Midazolam HCl 2 mg/2 ml Vial ONE ×4 (12:04→15:41)
[2019-10-22] MEDS ORDERED: Acetaminophen/Codeine 30-300mg Tablet PO PRN ×2 (12:56)
[2019-10-22] MEDS ORDERED: Nitroglycerin 0.4 MG TAB (25 Tab Bottle) SL PRN (12:56)
[2019-10-22] MEDS ORDERED: Sodium Chloride 0.9% 200 ML IV PRN (12:56)
[2019-10-22] MEDS ORDERED: Fentanyl 100 MCG/2 ML VIAL ONE ×2 (14:14→17:13)
[2019-10-22] MEDS ORDERED: Ondansetron PF 4 MG/2 ML Vial ONE (14:15)
[2019-10-22] MEDS ORDERED: Dexamethasone 4 mg/ml Vial ONE (14:15)
[2019-10-22] MEDS ORDERED: Propofol 500 MG/50 ML VIAL ONE (14:15)
[2019-10-22] MEDS ORDERED: EPINEPHrine 1 MG/10 ML Abboject SYRINGE ONE (14:57)
--- NOTE | 2019-10-22 15:51 | CON ---
DATE OF CONSULTATION: 10/22/2019 Dictated by Susana Vaughn, Nurse Practitioner, as a scribe for Dr. Jarod Kirkpatrick REASON FOR CONSULTATION: Wide-complex tachycardia. HISTORY OF PRESENT ILLNESS: Mr. Corley is a 69-year-old gentleman, well known to our group for history of atrial arrhythmias, but has not been seen in the recent past. His most recent appointment was in December 2017, after which he has not followed up. He has had 3 prior ablations for atrial arrhythmias, initially for typical atrial flutter and 2 left atrial ablations for atrial fibrillation including complete isolation and ablation of the left atrial appendage. Most recent ablation was on 02/01/2017. He has been on amiodarone since prior to his most recent ablation and reports that he has been taking his medications since before his most recent ablation in approximately 2017. He also has a remote history of cardiomyopathy. He also has a history of transient cardiomyopathy of unknown etiology with a reduced ejection fraction of 30% to 35%. He has worn a LifeVest transiently, but his ejection fraction improved to 45% to 50% in 2018 and his LifeVest was discontinued. He is on Xarelto for chronic anticoagulation, given his left atrial appendage isolation in the past. Mr. Corley presented to [facility] the night prior, reporting palpitations and some chest pressure/pain. He was found to be in a wide-complex tachycardia and hypotensive. There was concern that this is ventricular tachycardia and urgent cardioversion was performed in the emergency room. Sinus rhythm was restored and the patient was admitted for further observation and EP consultation was requested for evaluation of the wide-complex tachycardia. Mr. Corley is currently feeling well. He denies any ongoing heart racing, chest pain, pressure, syncope, near syncope, stroke, or stroke-like symptoms. He does endorse occasional palpitations that feel similar to his atrial fibrillation episodes in the past. REVIEW OF SYSTEMS: A 12-point review of systems is negative except that listed above in the HPI. PAST MEDICAL HISTORY: 1. Persistent atrial fibrillation, status post two prior left atrial ablations, most recently on 02/01/2017, including isolation of the left atrial appendage. 2. Chronic amiodarone therapy for atrial arrhythmia suppression since approximately 2016. 3. COPD. 4. Tobacco habituation. 5. Typical atrial flutter, status post ablation in 2014. 6. Remote history of cardiomyopathy with left ventricular ejection fraction of 30% to 35%, recovered to 45% to 50%. 7. Coronary artery disease. 8. Junctional bradycardia with the use of AV janel blocking medications. ALLERGIES: ALBUTEROL AND IPRATROPIUM. HOME MEDICATIONS: Include; 1. Spironolactone 25 mg q.a.m. 2. Amiodarone 200 mg p.o. daily. 3. Lisinopril 2.5 mg daily. 4. Atorvastatin 40 mg q.a.m. 5. Aspirin 81 mg daily. FAMILY HISTORY: Noncontributory. SOCIAL HISTORY: History of tobacco use. 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 Denies alcohol or illicit drug use. OBJECTIVE: VITAL SIGNS: Temperature 98.5, pulse 48, blood pressure 110/56, respirations 16, and oxygen is 99% on 1 L via nasal cannula. GENERAL: The patient is alert and oriented. Speech is clear. Affect is appropriate. He is in no apparent distress at the time of exam. HEENT: His oral mucosa is moist and pink. He has fair dentition, but front lower teeth are missing. NECK: Supple without jugular venous distention. There is no lymphadenopathy. Trachea is midline. LUNGS: Clear to auscultation bilaterally. HEART: Rate is slow, but regular with crisp S1 and S2. PMI is nondisplaced. ABDOMEN: Obese, soft, and nontender without palpable masses. Hepatojugular reflux is negative. EXTREMITIES: Warm, dry, without clubbing, cyanosis, or edema. NEUROLOGIC: Grossly intact and nonfocal. Gait was not assessed. LABORATORY DATA: Hematology was unremarkable. Chemistry; potassium 4.7, and creatinine 2.38 on admission, now 1.53. Liver enzymes were checked and within normal ranges. There is an indeterminate bump in troponin, max is 0.031. TSH not checked. Chest x-ray performed on 08/22/2019, no airspace density, pulmonary edema, or pneumothorax. The lateral costophrenic angles are not effaced. No acute findings. Telemetry and EKGs were all personally reviewed. A 12-lead EKG on presentation shows a wide-complex tachycardia at a rate of approximately 145 beats per minute. There is a left bundle morphology block seen. There were no clearly discernible P waves, but this is suspicious for 2:1 atrial flutter. Telemetry tracings since his cardioversion have been reviewed. No ventricular arrhythmias have been seen. He does have an underlying bifascicular block at baseline. The wide-complex tachycardia on admission likely represents aberrancy with left bundle-branch block. IMPRESSION: 1. Wide-complex tachycardia, most likely atrial flutter with 2:1 AV janel conduction and left bundle aberrancy. 2. Persistent recurrent atrial arrhythmias with prior ablations including left atrial appendage isolation, requiring chronic anticoagulation. 3. Chronic antiarrhythmic therapy with amiodarone since at least 2017. 4. History of systolic heart failure with recovered ejection fraction up to 45% to 50% by our outpatient records. 5. Baseline bifascicular block. PLAN AND RECOMMENDATIONS: There are plans for an ischemic evaluation by Cardiology, which I am in full agreement with to better assess his coronary arteries and also check his ejection fraction, given his history. I would recommend continuing amiodarone. If this truly was a ventricular arrhythmia, amiodarone therapy would be a benefit. I am hesitant to increase his amiodarone for risk of potential toxic side effects with long-term therapy. His presenting 12-lead EKG is certainly more suspicious for 2:1 atrial flutter with aberrant conduction, but I cannot rule out ventricular tachycardia. We will await the results of his ischemic evaluation. I would recommend at least a 30-day event monitor or possibly 2-week looping monitor for Mr. Corley after discharge, at this point, unless there are significant findings with his ischemic evaluation. Thank you for allowing me to participate in the care of this patient. Job ID: [id number]
--- NOTE | 2019-10-22 15:56 | CON ---
DATE OF CONSULTATION: 10/22/2019 ADDENDUM: Addendum to Cardiology Consultation. INDICATION FOR CONSULTATION: This is a 69-year-old gentleman with history of coronary artery disease, also had multiple episodes of atrial arrhythmias in the past including atrial flutter and atrial fibrillation, for which he has undergone ablation in the past. He also had history of SVT in the past. He had been doing relatively well, has been doing very well after his last ablation. He has remained on amiodarone. He had about a week ago noted some fast heart rates and that resolved, and then yesterday evening, he noticed again some fast heart rates, and was brought to the emergency room, was noted to be in wide-complex tachycardia. He underwent electrical cardioversion, back to sinus rhythm. The tachycardia appeared to be most likely either SVT with aberration or a ventricular tachycardia. In any event, he was converted back to sinus rhythm after he was given a shock in the emergency room. At that time, the blood pressure was stable after the procedure. Oxygen level also was okay. He has been working without any symptoms as he has had no chest pain or shortness of breath. He had been doing very well until this episode yesterday. Given the fact that he does have a history of coronary artery disease, this appears to be possible ventricular tachycardia, I have suggested he undergo a repeat cardiac catheterization to evaluate his coronary artery status. His enzymes, actually the first set was indeterminate, but the next two sets were negative for myocardial infarction, but the patient does have known history of coronary artery disease and this may have sparked his ventricular tachycardia last night. At this time, we will proceed with cardiac catheterization to evaluate his coronary status. I have explained to him the procedure and the risks to include bleeding, infection, possible myocardial infarction, CVA, renal insufficiency, allergic contrast reaction, even the possibility of . He understands and agrees to proceed. Also of note is that his creatinine is slightly elevated at 2.28. He has been given some IV fluids overnight and the creatinine this morning has improved. This morning, creatinine is down to 1.53. He has had no history in the past of renal insufficiency. We will continue to monitor this. We will try to use minimal amount of contrast in doing the cardiac catheterization. PHYSICAL EXAMINATION: VITAL SIGNS: At this time, reveals a blood pressure of 110/56, heart rate is in the 50s to 40s and shows a sinus rhythm. He is afebrile. Respiratory rate is 16, O2 saturation is 100%. HEENT: Shows the head to be normocephalic and atraumatic. Carotid pulses are present. I did not hear any significant bruits. I believe he had a soft systolic bruit on the right side, I will re-evaluate this again. CHEST: Otherwise, his chest was clear to auscultation without rales, rhonchi, or wheezing. CARDIOVASCULAR: Reveals a regular rate and rhythm at this time. He has a normal S1 and S2. I could not hear any significant S3 or S4. There were no significant murmurs, heaves, thrills, bruits, or rubs noted. ABDOMEN: Soft and nontender. Positive bowel sounds are present. No tenderness is noted. EXTREMITIES: Showed no clubbing, cyanosis, or edema. Pedal pulses are present. NEUROLOGIC: The patient appears to be fully intact. SKIN: Warm and dry. IMPRESSION: 1. Overall impression again is new onset of what appears to be ventricular tachycardia or supraventricular tachycardia with a bundle-branch block. He will undergo cardiac catheterization to evaluate his coronary artery status. 2. History of coronary artery disease. This has been stable in the past, but he does have a history of disease by previous cardiac catheterization and we will certainly continue to monitor this later on today. 3. What appears to be acute renal insufficiency. We will need to repeat his lab. He has been given IV fluids. Hopefully, this is just a manifestation of some mild dehydration. However, the BUN was not significantly elevated. Certainly, the creatinine was out of proportion to the BUN to indicate dehydration, does not appear to be the case, but hopefully this will improve once we have given IV fluids. 4. History also of hypercholesterolemia. We will continue his present medications. 5. Chronic obstructive pulmonary disease. This is stable at this time. 6. Hypertension, which is also under good control at this time. We will continue his present medications. Job ID: [id number]
[2019-10-22] MEDS ORDERED: Isoproterenol 0.2 MG/1 ML AMP ONE (16:00)
[2019-10-22] MEDS ORDERED: Phenylephrine 10 MG/ML VIAL ONE (16:22)
[2019-10-22] MEDS ORDERED: Rivaroxaban 15 MG TAB PO SCH (17:00)
--- NOTE | 2019-10-22 17:02 | PDOC.HOSPP ---
- Subjective Encounter Date: 10/22/19 Encounter Time: 09:45 Subjective: pt up in bed no complains. - Objective Vital Signs & Weight: Vital Signs (12 hours) Temp Pulse Resp BP Pulse Ox 10/22/19 12:49 99.1 F 49 L 17 135/65 99 10/22/19 11:02 98.5 F 48 L 16 110/56 L 99 10/22/19 07:22 98.3 F 47 L 18 120/59 L 100 Weight Weight 164 lb 4.8 oz I&O: 10/21/19 10/22/19 10/23/19 06:59 06:59 06:59 Intake Total 300 740 Output Total 0 450 Balance 300 290 Result Diagrams: 10/21/19 22:34 10/22/19 04:06 Hospitalist ROS - Review of Systems Cardiovascular: denies: chest pain, palpitations, orthopnea, paroxysmal noc. dyspnea, edema, light headedness, other Gastrointestinal: denies: nausea, vomiting, abdominal pain, diarrhea, constipation, melena, hematochezia, other Genitourinary: denies: dysuria, frequency, incontinence, hematuria, retention, other - Medication Medications: Active Medications Generic Name Dose Route Start Last Admin Trade Name Freq PRN Reason Stop Dose Admin Aspirin 325 mg 10/22/19 09:00 10/22/19 08:21 Ecotrin PO 325 mg DAILY ANGIE Administration Famotidine 20 mg 10/22/19 09:00 10/22/19 08:21 Pepcid PO 20 mg DAILY ANGIE Administration Sodium Chloride 1,000 mls @ 100 mls/hr 10/22/19 09:46 10/22/19 11:05 Normal Saline 0.9% IV 1,000 mls .Q10H ANGIE Administration - Exam Heart: negative: RRR, no murmur, no gallops, no rubs, normal peripheral pulses, irregular, diminshed peripheral pulses, murmur present, II/IV, III/IV Respiratory: negative: CTAB, no wheezes, no rales, no ronchi, normal chest expansion, no tachypnea, normal percussion, rales, rhonchi, tachypneic, wheezes Gastrointestinal: negative: soft, non-tender, non-distended, normal bowel sounds , no palpable masses, no hepatomegaly, no splenomegaly, no bruit, no guarding, no rigidity, tender to palpation, distended, diminished bowl sounds, voluntary guarding Hosp A/P (1) Atrial fibrillation with RVR Code(s): I48.91 - UNSPECIFIED ATRIAL FIBRILLATION Status: Acute (2) Hypertension Code(s): I10 - ESSENTIAL (PRIMARY) HYPERTENSION Status: Acute (3) APRIL (acute kidney injury) Code(s): N17.9 - ACUTE KIDNEY FAILURE, UNSPECIFIED Status: Acute - Plan pt to be seen by ep and cardio. will continue his amio and AC. will monitor his renal function.
[2019-10-22] MEDS ORDERED: Promethazine HCl 25 MG/ML VIAL SLOW IVP PRN (17:22)
[2019-10-22] MEDS ORDERED: Promethazine HCl 25 MG/ML VIAL IM PRN (17:22)
[2019-10-22] MEDS ORDERED: Ondansetron HCl/PF 4 MG/2 ML Vial IVP PRN (17:22)
[2019-10-23 04:33] LABS: Hemoglobin 12.5 g/dL (14.0-18.0); Platelet Count 201 thou/uL (130-400)
[2019-10-23 04:54] LABS: Anion Gap 10 mmol/L (10-20); BUN (Urea Nitrogen) 21 mg/dL (8.4-25.7); Calc. Creatinine Clearance 75 mL/min (70-130); Calcium 8.3 mg/dL (7.8-10.44); Carbon Dioxide 26 mmol/L (23-31); Chloride 105 mmol/L (98-107); Estimated GFR-MDRD 77; Glucose 170 mg/dL (80-115); Potassium 4.5 mmol/L (3.5-5.1); Sodium 136 mmol/L (136-145)
[2019-10-23] MEDS: Sodium Chloride 0.9% 1,000 ML IV SCH ×2 (05:15→15:58)
[2019-10-23] MEDS ORDERED: Spironolactone 25 MG TAB PO SCH (08:00)
--- NOTE | 2019-10-23 08:30 | OP ---
DATE OF PROCEDURE: 10/22/2019 REFERRING PHYSICIANS: Dr. Christensen as well as Dr. Megan Sylvester. REASON FOR PROCEDURE: Mr. Corley is a 69-year-old gentleman with history of recurrent atrial fibrillation/flutter, on amiodarone for suppression, and also had history of reduced LVEF, which normalized in the past. Now, he is presenting with wide- complex tachycardia, requiring cardioversion. Here for EP study to evaluate the nature of the arrhythmia. DESCRIPTION OF PROCEDURE: The patient received deep sedation by Anesthesia specialist. After adequate level of sedation achieved, the right femoral venous area was prepped, draped, and anesthetized with subcutaneous lidocaine, and under ultrasound guidance, the right femoral vein was cannulated x2. 6- and 8-[place] short sheaths were introduced, through which a decapolar and a quadripolar catheter was advanced to the right atrium, right ventricle, His bundle, and CS position. Basic EP study was performed with the following findings. Baseline rhythm was sinus rhythm, sinus bradycardia with a cycle length of 248 milliseconds, NC 226 milliseconds, QRS 104 milliseconds, QT 472 milliseconds, HV was measured at 73 milliseconds. Sinus node recovery time was 750 milliseconds corrected. Antegrade Wenckebach cycle length was 480 milliseconds. Retrograde Wenckebach cycle length was 580 milliseconds. No aberration noted with rapid atrial pacing. AV janel ERP was 600/340 milliseconds. Following that, ventricular extrastimuli testing was performed from multiple locations. Initially at [address] with up to 3 ventricular extrastimuli dec remented to the ventricular refractory period. Also, the same sequence repeated at [address], and different locations were also tested. Isuprel was administered in the end of the study up to 4 mcg with blood pressure drop limiting the Isuprel use. With that, also no ventricular tachycardia was induced. Atrial burst protocol was repeated and only short atypical nonsustained atrial flutter was seen. No evidence of accessory pathway or dual AV janel physiology was present. CONCLUSION: No inducible ventricular tachycardia or sustained atrial arrhythmias seen. No atrial fibrillation was induced. PLAN: 1. For now, continue amiodarone. 2. Reduced LVEF, consider LifeVest and optimize medical therapy. If LVEF does not improve over 35%, consider ICD implant long-term, consider further monitoring if recurrence is noted. Job ID: [id number] [facility]
[2019-10-23] MEDS ORDERED: Aspirin 81 mg Enteric Coated Tablet PO SCH ×2 (09:00)
[2019-10-23] MEDS ORDERED: Lisinopril 2.5 MG TAB PO SCH (09:00)
[2019-10-23] MEDS ORDERED: Amiodarone 200 MG TAB PO SCH ×2 (09:00)
[2019-10-23] MEDS ORDERED: Atorvastatin Calcium 40 MG TAB PO SCH (09:00)
--- NOTE | 2019-10-23 09:00 | PDOC.EP ---
- Subjective Date: 10/23/19 Time: 09:00 - Objective Allergies/Adverse Reactions: Allergies Allergy/AdvReac Type Severity Reaction Status Date / Time albuterol [From Combivent] Allergy SOB Verified 11/19/17 08:52 ipratropium [From Combivent] Allergy SOB Verified 11/19/17 08:52 Current Medications Acetaminophen/Codeine Phosphate (Tylenol #3) 1 tab PO Q4H PRN PRN Reason: Mild Pain (1-3) Acetaminophen/Codeine Phosphate (Tylenol #3) 2 tab PO Q4H PRN PRN Reason: Moderate Pain (4-6) Amiodarone HCl (Cordarone) 200 mg PO DAILY [facility] Aspirin (Ecotrin) 81 mg PO DAILY [facility] Atorvastatin Calcium (Lipitor) 40 mg PO QAM [facility] Carvedilol (Coreg) 3.125 mg PO BID[facility] Famotidine (Pepcid) 20 mg PO DAILY [facility] Last Admin: 10/22/19 08:21 Dose: 20 mg Sodium Chloride (Normal Saline 0.9%) 1,000 mls @ 100 mls/hr IV .Q10H [facility] Last Admin: 10/23/19 05:15 Dose: 1,000 mls Sodium Chloride (Normal Saline 0.9%) 200 mls @ 0 mls/hr IV PRN PRN PRN Reason: SBP < 90 Melatonin (Melatonin) 3 mg PO HSPRN PRN PRN Reason: Insomnia Miscellaneous Information (Communication Order-Pharmacy) 0 each FS ASDIR [facility] Nitroglycerin (Nitrostat) 0.4 mg SL Q5MIN PRN PRN Reason: Chest Pain Rivaroxaban (Xarelto) 20 mg PO 1800 [facility] Sacubitril/Valsartan (Entresto 24 Mg-26 Mg Tablet) 1 tab PO BID [facility] Last Admin: 10/22/19 21:05 Dose: 1 tab Sodium Chloride (Flush - Normal Saline) 10 ml IVF Q12HR [facility] Last Admin: 10/22/19 21:19 Dose: Not Given Sodium Chloride (Flush - Normal Saline) 10 ml IVF PRN PRN PRN Reason: Saline Flush Spironolactone (Aldactone) 12.5 mg PO QAM-[facility] Vital Signs & Weight: Vital Signs Temp Pulse Resp BP Pulse Ox 10/23/19 07:42 98.2 F 55 L 14 105/57 L 97 10/23/19 03:05 98.0 F 47 L 20 102/54 L 93 L 10/23/19 00:48 98 10/22/19 23:26 55 L 113/56 L Weight 167 lb 6.4 oz I/O: I/O 10/22/19 10/23/19 10/24/19 06:59 06:59 06:59 Intake Total 300 1340 Output Total 0 900 Balance 300 440 - Labs Result Diagrams: 10/23/19 04:12 10/23/19 04:12 - Assessment/Plan Assessment/Plan: 1. Wide-complex tachycardia, most likely atrial flutter with 2:1 AV janel conduction and left bundle aberrancy. 2. Persistent recurrent atrial arrhythmias with prior ablations including left atrial appendage isolation, requiring chronic anticoagulation. 3. Chronic antiarrhythmic therapy with amiodarone since at least 2016. 4. History of systolic heart failure with recovered ejection fraction up to 45% to 50% by our outpatient records. 5. Baseline bifascicular block.
[2019-10-23] MEDS: Carvedilol 3.125 MG TAB PO SCH ×2 (09:20→17:10)
[2019-10-23] MEDS: Famotidine 20 MG TAB PO SCH (09:23)
--- NOTE | 2019-10-23 10:23 | PDOC.CPN ---
- Subjective Date: 10/23/19 Time: 10:00 - Review of Systems General: reports: night sweats, fatigue Respiratory: reports: cough, congestion, shortness of breath Cardiovascular: reports: chest pain, palpitation, paroxysmal nocturnal dyspnea Gastrointestinal: reports: nausea, vomiting Musculoskeletal: reports: tenderness, swelling Neurological: reports: weakness - Objective Allergies/Adverse Reactions: Allergies Allergy/AdvReac Type Severity Reaction Status Date / Time albuterol [From Combivent] Allergy SOB Verified 11/19/17 08:52 ipratropium [From Combivent] Allergy SOB Verified 11/19/17 08:52 Visit Medications: Current Medications Acetaminophen/Codeine Phosphate (Tylenol #3) 1 tab PO Q4H PRN PRN Reason: Mild Pain (1-3) Acetaminophen/Codeine Phosphate (Tylenol #3) 2 tab PO Q4H PRN PRN Reason: Moderate Pain (4-6) Amiodarone HCl (Cordarone) 200 mg PO DAILY [facility] Last Admin: 10/23/19 09:23 Dose: 200 mg Aspirin (Ecotrin) 81 mg PO DAILY [facility] Last Admin: 10/23/19 09:23 Dose: 81 mg Atorvastatin Calcium (Lipitor) 40 mg PO QAM [facility] Last Admin: 10/23/19 09:23 Dose: 40 mg Carvedilol (Coreg) 3.125 mg PO BID-[facility] Last Admin: 10/23/19 09:20 Dose: Not Given Famotidine (Pepcid) 20 mg PO DAILY [facility] Last Admin: 10/23/19 09:23 Dose: 20 mg Sodium Chloride (Normal Saline 0.9%) 1,000 mls @ 100 mls/hr IV .Q10H [facility] Last Admin: 10/23/19 05:15 Dose: 1,000 mls Sodium Chloride (Normal Saline 0.9%) 200 mls @ 0 mls/hr IV PRN PRN PRN Reason: SBP < 90 Melatonin (Melatonin) 3 mg PO HSPRN PRN PRN Reason: Insomnia Miscellaneous Information (Communication Order-Pharmacy) 0 each FS ASDIR [facility] Nitroglycerin (Nitrostat) 0.4 mg SL Q5MIN PRN PRN Reason: Chest Pain Rivaroxaban (Xarelto) 20 mg PO 1700 [facility] Sacubitril/Valsartan (Entresto 24 Mg-26 Mg Tablet) 1 tab PO BID [facility] [place] Last Admin: 10/23/19 09:30 Dose: 1 tab Sodium Chloride (Flush - Normal Saline) 10 ml IVF Q12HR [facility] Last Admin: 10/23/19 09:25 Dose: Not Given Sodium Chloride (Flush - Normal Saline) 10 ml IVF PRN PRN PRN Reason: Saline Flush Spironolactone (Aldactone) 12.5 mg PO QAM-WM [facility] Last Admin: 10/23/19 09:20 Dose: 12.5 mg Vital Signs & Weight: Vital Signs Temp Pulse Resp BP Pulse Ox 10/23/19 07:42 98.2 F 55 L 14 105/57 L 97 10/23/19 03:05 98.0 F 47 L 20 102/54 L 93 L 10/23/19 00:48 98 10/22/19 23:26 55 L 113/56 L Weight 167 lb 6.4 oz - Quality Measures CV meds: Beta Jesus: Yes, JUAN CARLOS/ARB: Yes - Physical Exam HEENT: normocephaly Neck: no JVD/HJR, no bruit Cardiac: regular rate and rhythm, no murmur, bradycardia Lungs: clear to auscultation Neuro: grossly intact Abdomen: unremarkable Extremities: no cyanosis, no clubbing, no edema - Labs Result Diagrams: 10/23/19 04:12 10/23/19 04:12 Troponin/CKMB CK-MB (CK-2) 3.3 ng/mL (0-6.6) 10/21/19 22:34 Troponin I 0.024 ng/mL (< 0.028) 10/22/19 04:06 - Telemetry Sinus rhythms and dysrhythmias: sinus rhythm (sinus liliana at times. No tachycardia.) - Assessment/Plan Assessment/Plan: 1. Wide complex tachycardia. Possible atrial flutter with 1:1 conduction. no inducible V-tach at EP studt. appreciate Dr. Kirkpatrick's input. Pt. is now agreeable to a Life-Vest. As soon as the vest is available he can be d/c'd. It seems that the rapid HR started after he missed his betablockers for a few days. 2. CMY: this may be due to the tachycardia. Hopefully this will improve with entresto and beta-blockers. 3. Mild CAD. 4. tobacco abuse: informed to stop. F/U with me in the office in 3-4 weeks. [email or web address]
[2019-10-23 15:56] VITALS: BP 121/60; TEMP 98.2
[2019-10-23] MEDS ORDERED: Rivaroxaban 10 MG TAB PO SCH (17:00)
[2019-10-23] MEDS ORDERED: Famotidine 20 MG TAB PO SCH (21:00)
[2019-10-23] MEDS ORDERED: Apixaban 5 MG TAB PO SCH (21:00)
== END 2019-10-23 19:10 | disposition home or self-care (01) | DRG 274 ==
LOC: ERS 22:19 → 2NO 23:23
PROVIDERS: ADMIT Internal Medicine; ATTEND Internal Medicine
PROC: 4A023FZ Measurement of Cardiac Rhythm, Percutaneous Approach (ICD-10-PCS; principal; 2019-10-22)
PROC: 4A0234Z Measurement of Cardiac Electrical Activity, Percutaneous Approach (ICD-10-PCS; 2019-10-22)
PROC: 4A023N7 Measurement of Cardiac Sampling and Pressure, Left Heart, Percutaneous Approach (ICD-10-PCS; 2019-10-22)
PROC: B2151ZZ Fluoroscopy of Left Heart using Low Osmolar Contrast (ICD-10-PCS; 2019-10-22)
PROC: B2111ZZ Fluoroscopy of Multiple Coronary Arteries using Low Osmolar Contrast (ICD-10-PCS; 2019-10-22)
PROC: 5A2204Z Restoration of Cardiac Rhythm, Single (ICD-10-PCS; 2019-10-22)
DX: I47.2 Ventricular tachycardia (principal); N17.9 Acute kidney failure, unspecified; I42.9 Cardiomyopathy, unspecified; I50.22 Chronic systolic (congestive) heart failure; I48.19 Other persistent atrial fibrillation; K21.9 Gastro-esophageal reflux disease without esophagitis; I11.0 Hypertensive heart disease with heart failure; E78.5 Hyperlipidemia, unspecified; F17.210 Nicotine dependence, cigarettes, uncomplicated; I95.9 Hypotension, unspecified; J44.9 Chronic obstructive pulmonary disease, unspecified; I25.10 Atherosclerotic heart disease of native coronary artery without angina pectoris; I48.92 Unspecified atrial flutter; I45.2 Bifascicular block; E78.00 Pure hypercholesterolemia, unspecified; Z98.52 Vasectomy status; Z88.8 Allergy status to other drugs, medicaments and biological substances; Z79.82 Long term (current) use of aspirin; Z79.899 Other long term (current) drug therapy
CPT/HCPCS: 36415; 71045; 76942; 80048; 80053; 82550; 82553; 84439; 84443; 84481; 84484; 85014; 85018; 85025; 85049; 93005; 93306; 93458; 93621; 93623; 94760; 96361; 96374; 99152; 99153; C1769; J0171; J0690; J1100; J1644; J1650; J2250; J2370; J2405; J2704; J3010; J3490; Q9967

== ENCOUNTER 2019-12-17 23:14 | Inpatient (IN) | payer MEDICARE ==
[2019-12-17 23:51] LABS: #Basophils 0.1 thou/uL (0.0-0.2); #Eosinphils 0.3 thou/uL (0.0-0.7); #Lymphocytes 3.2 thou/uL (1.20-3.40); #Monocytes 1.1 thou/uL (0.11-0.59); #Neutrophils 5.5 thou/uL (1.40-6.50); %Basophils 0.6 % (0.0-1.0); %Eosinophils 2.9 % (0.0-10.0); %Lymphocytes 31.3 % (21.0-51.0); %Monocytes 10.4 % (0.0-10.0); %Neutrophils 54.7 % (42.0-75.0); Hemoglobin 15.1 g/dL (14.0-18.0); Mean Corpuscular HGB CONC 32.3 g/dL (32.0-36.0); Mean Corpuscular Hemoglobin 31.1 pg (27.0-31.0); Mean Corpuscular Volume 96.5 fL (78.0-98.0); Mean Platelet Volume 8.3 fL (7.4-10.4); Platelet Count 322 thou/uL (130-400); RBC Distribution Width 11.9 % (11.5-14.5); Red Blood Cell (RBC) Count 4.85 mill/uL (4.70-6.10); White Blood Cell (WBC) Count 10.1 thou/uL (4.8-10.8)
[2019-12-18 00:10] LABS: Anion Gap 13 mmol/L (10-20); BUN (Urea Nitrogen) 18 mg/dL (8.4-25.7); Calc. Creatinine Clearance 0 mL/min (70-130); Carbon Dioxide 25 mmol/L (23-31); Chloride 105 mmol/L (98-107); Estimated GFR-MDRD 60; Potassium 3.9 mmol/L (3.5-5.1); Sodium 139 mmol/L (136-145)
[2019-12-18 00:11] LABS: ALT (SGPT) 14 U/L (8-55); AST (SGOT) 13 U/L (5-34); Albumin 3.9 g/dL (3.4-4.8); Alkaline Phosphatase 94 U/L (40-110); Bilirubin, Total 0.4 mg/dL (0.2-1.2); CK (CPK) 73 U/L (30-200); Calcium 9.5 mg/dL (7.8-10.44); Globulin 2.8 g/dL (2.4-3.5); Glucose 120 mg/dL (80-115); Protein, Total 6.7 g/dL (5.8-8.1)
[2019-12-18 02:34] VITALS: BMI 23.6
[2019-12-18 03:29] LABS: Troponin I 0.021 ng/mL (< 0.028)
--- NOTE | 2019-12-18 05:47 | HP ---
CHIEF COMPLAINT: Palpitations and fast heart rate. HISTORY OF PRESENT ILLNESS: Mr. Corley is a 69-year-old male with past medical history of coronary artery disease, multiple episodes of atrial arrhythmias including atrial flutter and atrial fibrillation, undergone ablation in the past, among others, presents to the emergency room with palpitations and fast heart rate. Denies chest pain, nausea, vomiting, abdominal pain, or diarrhea. The patient was seen by force variation equipment tender, and the patient was placed on amiodarone. Also, the patient is on carvedilol. Heart rate in the ER is in the 130s. EKG shows sinus tachycardia. Lab work unremarkable. TSH is normal. Magnesium is normal. The patient was placed on IV amiodarone drip in the emergency room. The patient is going to be admitted to hospital for further management. PAST MEDICAL HISTORY: 1. Cardiac tachyarrhythmias, atrial fibrillation, atrial flutter, wide-complex tachycardia. 2. Pneumothorax. 3. COPD. 4. GERD. 5. Hypertension. 6. Hyperlipidemia. PAST SURGICAL HISTORY: 1. Cardiac ablation x4. 2. Tonsillectomy. 3. Hernia repair. 4. Hand surgery. 5. Colonoscopy. 6. Cataract. 7. Heart cath x2. FAMILY HISTORY: Reviewed and noncontributory. SOCIAL HISTORY: He currently smokes tobacco, smokes 3 per day. HOME MEDICATIONS: Please see home medication reconciliation form for updated medications. ALLERGIES: NO KNOWN ALLERGIES. REVIEW OF SYSTEMS: Review of 14 systems negative except what is mentioned in history of present illness. PHYSICAL EXAMINATION: GENERAL: The patient is awake, alert. Does not appear to be in acute distress. VITAL SIGNS: Blood pressure is 114/77, pulse is 127, respiratory rate is 20, temperature 98.8, pulse oximetry is 98% on room air. HEAD AND NECK: Normocephalic and atraumatic. NECK: Supple. No JVD. CHEST: Fair bilateral air entry. HEART: S1 and S2. Regular. Tachycardic. ABDOMEN: Soft, nontender. Bowel sounds present. NEUROLOGIC: Awake, alert, oriented x3. PSYCH: Normal mood. EXTREMITIES: No clubbing or cyanosis. GENITOURINARY: No suprapubic tenderness. No flank tenderness. LABORATORY DATA: As mentioned above in history of present illness. ASSESSMENT AND PLAN: 1. Tachyarrhythmias. Heart rate in the 130s. The patient has extensive cardiac history including atrial fibrillation, atrial flutter, wide-complex tachycardia, and cardiac ablation x4. 2. Chronic obstructive pulmonary disease. 3. History of pneumothorax. 4. Gastroesophageal reflux disease. 5. Hypertension. 6. Hyperlipidemia. PLAN: 1. Admit. 2. Telemetry monitoring. 3. The patient was started on IV amiodarone drip given his presentation with palpitations and extensive tachyarrhythmia history. The patient is already on oral amiodarone at home. 4. Consult the patient's mica splitter in a.m. for evaluation and further recommendations. 5. Reconcile home medications. 6. DVT prophylaxis. Continue home anticoagulant. 7. Expected length of stay at least 1 midnight if patient is stable and cleared by Cardiology. Job ID: [id number]
[2019-12-18 06:13] LABS: Troponin I 0.013 ng/mL (< 0.028)
[2019-12-18] MEDS ORDERED: Carvedilol 6.25 MG TAB PO SCH (08:00)
--- NOTE | 2019-12-18 08:15 | RAD ---
FRONTAL RADIOGRAPH CHEST PORTABLE UPRIGHT: DATE: 12/17/2019. COMPARISON: 10/21/2019. HISTORY: Tachycardia. FINDINGS: Stable increased linear interstitial density. No pneumothorax, pleural fluid, focal consolidation, o r alveolar edema. IMPRESSION: Stable appearance of the chest - no focal consolidation or alveolar edema. POS: [facility]
[2019-12-18] MEDS: Carvedilol 3.125 MG TAB PO SCH ×2 (08:51→16:52)
[2019-12-18] MEDS: Amiodarone 450 MG, Admixture Fee 1 EACH in Dextrose 5% in Water 250 ML IVPB SCH ×2 (08:51→17:57)
[2019-12-18] MEDS ORDERED: Apixaban 5 MG TAB PO SCH (13:15)
--- NOTE | 2019-12-18 19:12 | CON ---
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 His problems are: 1. Recurrent atrial arrhythmias. a. Past history of persistent atrial fibrillation with three prior ablations, most recently in February 01, 2017. b. Chronic amiodarone suppression. c. Presentation of wide-complex arrhythmia apparently atrial flutter with aberrant conduction prompting hospitalization October 22, 2019 with subsequent cardioversion. d. EP study on 10/22/2019 demonstrates no inducible ventricular tachycardia or sustained atrial arrhythmia. Amiodarone was continued. 2. Chronic systolic congestive heart failure with nonischemic cardiomyopathy. a. 2D echo from 10/23/2019 reveals LVEF of 30% to 35%. b. Improving LVEF on echocardiogram in Dr. Sylvester office. 3. Nonsustained wide-complex tachycardia on current admit. 4. History of COPD. 5. History of tobacco use. 6. Tendency for bradycardia on AV janel blocking medications. ALLERGIES: NONE. MEDICATIONS: At home include; 1. Lipitor 40 mg daily. 2. Amiodarone 200 mg daily. 3. Eliquis 5 mg twice a day. 4. Entresto 24/26 mg one tablet twice a day. 5. Coreg 1.56 mg twice a day. SUBJECTIVE: Mr. Corley is here with recurrent palpitations. He has done well up until this morning when his palpitations started and he has been fairly symptomatic with this. He was evaluated in the ER and wide-complex rhythm was noted. He was placed back on amiodarone. While on amiodarone drip, his rhythm converted back to sinus rhythm. He also had a 6-beat wide-complex rhythm different from the baseline aberrant conducted atrial flutter. Atrial flutter waves likely atypical atrial flutter are seen during telemetry monitoring once his heart rates are decreased on amiodarone drip. He did not pass out with these episodes. He had mild palpitations. No chest pains. No fever, chills, or cough at this point. No stroke-like symptoms. No bleeding issues on the continued Eliquis therapy. Rest of 12-point review of system otherwise unremarkable. PAST MEDICAL HISTORY: As above. Also includes GERD, hypertension, hyperlipidemia, and remote history of pneumothorax. SOCIAL HISTORY: The patient is a smoker. Denies EtOH or drug abuse. 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 FAMILY HISTORY: Not contributory. His mother also has atrial fibrillation, one of my patient. OBJECTIVE DATA: VITAL SIGNS: Blood pressure is 127/72, heart rate 59, respirations 20, and temperature 98.4 degrees Fahrenheit. GENERAL: Alert and oriented man, in no apparent distress. NECK: Supple. Jugular veins not distended. CHEST: Coarse without crackles. HEART: Sounds are regular to rate and rhythm. No murmur or gallop. ABDOMEN: Benign. Bowel sounds positive. EXTREMITIES: Lower extremity without edema, clubbing, or cyanosis. Pulses are adequate. NEUROLOGIC: The patient is nonfocal. MUSCULOSKELETAL: Without joint swelling or deformity. SKIN: Without rash. DATABASE: EKG is reviewed. Initial EKG reveals a wide-complex rhythm with rate of 133 beats per minute. QRS duration is 126 milliseconds, appears to be typical for left bundle pattern. Underlying PVCs are difficult to elicit. Subsequent telemetry strips reveal similar morphology with variable AV conduction and underlying flutter waves. Cannot completely rule out typical, but some atypical flutter is also seen. Subsequently, also has a 7 beats wide-complex rhythm with different morphology, likely ventricular tachycardia. Most recent EKG from December 17 at 10:12 a.m. reveals sinus rhythm with narrow QRS at a rate of 72 beats per minute in sinus rhythm. The acute QTc is 468 milliseconds. ASSESSMENT AND PLAN: Mr. Corley is a pleasant 69-year-old man with history of recurrent atrial arrhythmias with prior ablations in the past. He has atrial flutter with aberration, which is likely the present tachyarrhythmia yesterday. He seems to be responding well on the increased amiodarone dose. On the other hand, he has been on amiodarone before at 200 mg a day. My plan is; 1. Recurrent atrial arrhythmias. I think it is reasonable to short-term increase amiodarone, especially in view of the current COVID epidemic, but he may benefit from ablation therapy. I discussed the pros and cons on that and he is strongly considering it. We discussed the risk of high dose amiodarone administration as well system review of his chronic obstructive pulmonary disease. 2. History of cardiomyopathy with a reduced left ventricular ejection fraction last visit. Would like to recheck the echo on a recent echocardiogram was done by Dr. Sylvester office. If left ventricular ejection fraction continues to be reduced in the less than 35% range, he could be considered for implantable cardioverter-defibrillator implant especially in view of the short nonsustained VT event. If left ventricular ejection fraction improved, continued amiodarone therapy will suffice. 3. CHADS-VASc score of previous hypertension, congestive heart failure, and age on Eliquis therapy. 4. Chronic obstructive pulmonary disease. Plan, he could be taken off IV amiodarone and switch to p.o. amiodarone. We will follow up with him as an outpatient. Thank you again for allowing me to participate in the care of this patient. Job ID: [id number]
[2019-12-18] MEDS ORDERED: Atorvastatin Calcium 40 MG TAB PO SCH (21:00)
[2019-12-18] MEDS: Amiodarone 200 MG TAB PO SCH (21:16)
[2019-12-18] MEDS: Apixaban 5 MG TAB PO SCH (21:16)
[2019-12-19 04:23] LABS: Hemoglobin 13.6 g/dL (14.0-18.0); Platelet Count 278 thou/uL (130-400)
--- NOTE | 2019-12-19 08:16 | CON ---
DATE OF CONSULTATION: PRIMARY CARE DOCTOR: Dr. Francia Moses. PRIMARY SPIKE MACHINE HEATER: Dr. Megan Sylvester. NAPHTHALENE OPERATOR HELPER: Dr. Kirkpatrick. REASON FOR CARDIOLOGY CONSULT: Tachycardia. HISTORY OF PRESENT ILLNESS: Mr. Corley is a very pleasant 69-year-old male with a significant history mild to moderate three-vessel coronary artery disease , atrial fibrillation/atrial flutter with multiple cardioversions and ablations, chronic systolic heart failure, cardiomyopathy, and current smoker. The patient was in the hospital in October for atrial fibrillation, tachycardia, possible 1:1 atrial flutter. During that time , the patient did not take any beta mony. Once the patient started taking the beta mony, the patient's heart rhythm converted back to SR. The patient was discharged with recommendation to follow up with Dr. Kirkpatrick for possible ablation in the future. However, he has not followed up with Dr Kirkpatrick. The patient was also found to have low EF on October 22 with [id number] coronary artery disease. The patient was discharged with a LifeVest at that time. The patient's echocardiogram on November 09 showed EF 40 % to 45%, due to that result, the LifeVest was discontinued. Since then, the patient was doing relatively well till last night around 8:00, when he checked his vital sign prior to taking his night blood pressure medication, the patient was found to have the heart rate up to 130. He did not have any dizziness, lightheadedness, fluttering, or palpitation in his chest or any other cardiac complaints during the episode. However, due to the finding, the patient decided to present to the emergency department for further evaluation and treatment. The 12-lead EKG at the ER last night shows possible atrial flutter with rapid ventricular response. After the patient received amiodarone drip, the patient's EKG went down to normal sinus rhythm. He is continuing to have amiodarone drip with titration. According the patient's report, he continued taking carvedilol 3.125 mg half tablet twice a day at home since the patient's heart rate has been 60s with systolic blood pressure 100 to 110s. The patient underwent cardiac catheterization in October 2019 with 40% stenosis in LAD, 50% in the OM-1, and 30% in the proximal and distal RCA with EF less than 25% to 30%. The patient's echocardiogram on November 20, 2019, with EF 40% to 45%, grade 1 diastolic dysfunction, mildly dilated left atrium, mild aortic valve sclerosis, trace aortic regurgitation, mild mitral valve regurgitation, mild tricuspid regurgitation, and mild pulmonary regurgitation. The patient was supposed to follow up with Dr. Kirkpatrick after the patient was discharged from hospital in October. However, unfortunately, the patient has not followed up with Dr. Kirkpatrick at this moment. MEDICAL HISTORY: Frequent atrial fibrillation and atrial flutter, and wide complex tachycardia, cardiomyopathy, systolic heart failure, GERD, hypertension, hyperlipidemia, possible COPD, and current smoker. PAST SURGICAL HISTORY: Cardiac ablation x4, tonsillectomy, hernia repair, hand surgery colonoscopy, cataract, cardiac cath in 2015 and 2019. FAMILY HISTORY: Noncontributory. SOCIAL HISTORY: He is . He is living with his . He continues smoking 3 cigarettes per day, which he used to smoke at least one pack a day. He denied EtOH or illicit drug abuse. He has been active at home, building house. ALLERGIES: HE IS ALLERGIC TO ALBUTEROL, IPRATROPIUM, AND LISINOPRIL. LISINOPRIL CAUSED CHRONIC COUGH. REVIEW OF SYSTEMS: A 12-point review of systems negative unless otherwise mentioned in HPI. The patient denies any hematuria or hematochezia, excessive bleeding or bruising or recent fall. PHYSICAL EXAMINATION: VITAL SIGN: Blood pressure 123/61; temperature 98.6; pulse 66, sinus rhythm; respiratory rate 18; O2 saturation 97% on room air. GENERAL: The patient is alert and oriented x4, not in acute distress. HEAD: Normocephalic and atraumatic. EYES: Extraocular muscle movement intact. He wears glasses for reading. ENT: Mouth, oral and nasal mucosa moist without lesion. NECK: Supple. Normal range of motion. No JVD. RESPIRATORY: Clear to auscultate bilaterally. No wheezing, rales, or rhonchi noted, but diminished at the bases. CARDIOVASCULAR: normal S1 and S2. No S3 or S4. No significant murmur, heaves, or thrill noted. 2+ pulses in the bilateral upper and lower extremities. No edema in the lower extremities. ABDOMEN: Soft, nontender. No mass to palpation. Bowel sounds are present. MUSCULOSKELETAL: The patient was able to move all extremities. The patient denied any claudication. SKIN: Warm and dry. No lesion, rash, or erythema noted. NEUROLOGIC: The patient is alert and oriented x4, nonfocal. PSYCHIATRIC: The patient's mood is appropriate. LABORATORY DATA: WBC 10.1, hemoglobin 15.1, hematocrit 46.8, platelets 322. Sodium 139, potassium 3.9, creatinine 1.19, glucose 120, calcium 9.5, magnesium 2.0, AST 13, ALT 14. Troponin 0.021, 0.021, and 0.013. TSH 1.1684. Chest x-ray showed stable appearance of the chest. ASSESSMENT AND PLAN: 1. Possible recurrent atrial flutter with rapid ventricular response. The patient's heart rhythm has been in sinus rhythm on the telemetry with the amiodarone drip. We would like to request advertising production manager consult for possible atrial flutter treatment. Unfortunately, he has not followed up with Dr. Kirkpatrick since the patient was discharged from last hospitalization. He is on Eliquis since last discharge. 2. Coronary artery disease. Last catheterization in October 2019 showed mild to moderate coronary artery disease. The patient is asymptomatic. He is on carvedilol 3.125 mg twice a day. He is going to be on Eliquis 5 mg twice a day. Due to the Eliquis, we would like to hold aspirin at this moment. We would like to resume the patient's atorvastatin medication for this patient. 3. Hyperlipidemia. Lipitor is going to be resumed from [facility]. 4. Hypertension. The patient's blood pressure is stable at this moment with current medication. We would like to continue to monitor. 5. Chronic systolic heart failure. The patient is asymptomatic. Last echocardiogram in October 2019 showing EF of 40% to 45%. We would like to continue to monitor. He is going to be on carvedilol and we would like to resume Entresto if the patient's vitals signs are stable. 6. Current smoker. The patient was strongly recommended to start smoking cessation. Thank you very much for Cardiology Service consult request to participate in care of this patient. We will follow along the patient's care team and make further recommendations as appropriate. Job ID: [id number] [facility]
[2019-12-19] MEDS: Carvedilol 3.125 MG TAB PO SCH (08:50)
[2019-12-19] MEDS: Apixaban 5 MG TAB PO SCH (08:51)
[2019-12-19] MEDS: Amiodarone 200 MG TAB PO SCH (08:51)
[2019-12-19 11:27] VITALS: TEMP 98.4
[2019-12-19] MEDS ORDERED: Amiodarone 200 MG TAB PO SCH ×3 (12:00→21:00)
[2019-12-19 15:12] VITALS: BP 142/72
--- NOTE | 2019-12-19 15:58 | PDOC.CPN ---
- Subjective Date: 12/19/19 Time: 10:00 Interval history: The pt seen and examined. No overnight events. No cardiac complaints. - Objective Allergies/Adverse Reactions: Allergies Allergy/AdvReac Type Severity Reaction Status Date / Time albuterol [From Combivent] Allergy SOB Verified 11/19/17 08:52 ipratropium [From Combivent] Allergy SOB Verified 11/19/17 08:52 Visit Medications: Current Medications Amiodarone HCl (Cordarone) [facility] Apixaban (Eliquis) 5 mg PO BID [facility] Last Admin: 12/19/19 08:51 Dose: 5 mg Atorvastatin Calcium (Lipitor) 40 mg PO [facility] Last Admin: 12/18/19 21:17 Dose: 40 mg Carvedilol (Coreg) 1.5625 mg PO BID-[facility] Vital Signs & Weight: Vital Signs Temp Pulse Resp BP Pulse Ox 12/19/19 15:10 98.4 F 57 L 16 142/72 H 98 12/19/19 11:24 98.4 F 50 L 18 138/60 98 12/19/19 07:19 98.1 F 55 L 16 134/66 97 Weight 174 lb 8 oz - Physical Exam General: alert & oriented x3 HEENT: mucus membranes moist Neck: supple neck Cardiac: regular rate and rhythm, S1/S2 Lungs: clear to auscultation Neuro: cranial nerve 2-12 intact - Labs Result Diagrams: 12/19/19 04:07 12/19/19 04:07 Troponin/CKMB Troponin I 0.013 ng/mL (< 0.028) 12/18/19 05:26 - Telemetry Sinus rhythms and dysrhythmias: sinus rhythm - Assessment/Plan Assessment/Plan: 1. Aflutter with RVR - remains in SR;Amiodarone was decreased to 200mg BID from 400mg BID due to bradycardia; Coreg was decreased to 3.125mg 1/2 tab BID; On Eliquis 5 mg BID; Plan for Aflutter RFA as outpt by Dr Kirkpatrick 2. CMY - EF 45-50% today; on Coreg and Entresto 3. Mild CAD 4. Current smoker - strongly recommend smoking cessation MAR reviewed * Echo on 12/19/2019 with EF 45-50%, mild LAE, trace MR, mild AR, TR, and MS * From Cardiac standpoint, the pt is stable to d/c home. The pt will f/u with Dr Sylvester' office in 2 wks.
--- NOTE | 2019-12-19 16:45 | PRG ---
DATE OF SERVICE: 12/19/2019 SUBJECTIVE: Mr. Corley is doing well, in normal rhythm. No symptoms noted. OBJECTIVE DATA: VITAL SIGNS: Blood pressure is 142/72, heart rate 57, respiratory rate 16, and temperature 98.4 degrees Fahrenheit. GENERAL: Alert and oriented man, in no apparent distress. NECK: Supple. Jugular veins not distended. CHEST: Coarse without crackles. HEART: Sounds are regular to rate and rhythm. No murmur or gallop. ABDOMEN: Benign. Bowel sounds positive. EXTREMITIES: Lower extremity without edema, clubbing, or cyanosis. DATABASE: Telemetry strips reveal sinus rhythm, sinus bradycardia. A high-dose amiodarone at 400 mg twice a day was initiated last night. He has had this morning. ASSESSMENT AND PLAN: 1. Mr. Corley is a 69-year-old man with history of recurrent atrial arrhythmias, prior ablations with now repeated recurrences noted despite amiodarone therapy. He also had reduced left ventricular ejection fraction in the past, but current echocardiogram seems to indicate improving left ventricular ejection fraction at 45% to 50%. He does not meet the criteria for prophylactic implantable cardioverter-defibrillator implant. On the hand, repeat ablation procedure to be a consideration in view of his recurrences. I discussed these issues with him. He is agreeable; for now, continue increased dose amiodarone short term. He understands potential risk of pulmonary, liver, thyroid, and optic nerve toxicity. We I would prefer him repeat ablation in near future. We will make arrangements. 2-week followup will be requested. 1. Tendency for bradycardia. For now, reduce dose on Coreg and amiodarone to 200 mg twice a day, which could further reduce the bradycardia persist. For now, no indication for pacing. 2. CHADS-VASc score of 3, on Eliquis, continue. Job ID: [id number]
[2019-12-19] MEDS ORDERED: Carvedilol 3.125 MG TAB PO SCH (17:00)
--- NOTE | 2019-12-19 21:05 | DIS ---
DATE OF ADMISSION: 12/18/2019 DATE OF DISCHARGE: 12/19/2019 DISCHARGE DIAGNOSES: 1. Atrial flutter/atrial fibrillation, palpitations. 2. Anemia. CONSULTATIONS: Robert Sylvester with Cardiology and Jarod Kirkpatrick with EP. BRIEF HISTORY OF PRESENT ILLNESS: This is a 69-year-old male with a past medical history of atrial fibrillation, status post multiple ablations, who presented to the emergency room with tachycardia. The patient states that he was at home and checking his blood pressure when he noticed that his heart rate was in the 130s. The patient did not feel any discomfort aside from some mild chest pressure: When the patient presented to the emergency room, his heart rate was in the 130s and his EKG showed sinus tachycardia. He was admitted for further workup. HOSPITAL COURSE: 1. Uncontrolled atrial fibrillation/atrial flutter: The patient was started on amiodarone drip while in the emergency room due to his history of atrial fibrillation. The patient did go into atrial fibrillation and atrial flutter for 2 hours on the morning of the . However, he then converted to sinus rhythm shortly after. He was given amiodarone 400 mg b.i.d. On the morning of the however, he became bradycardic with heart rates in the 50s. His amiodarone and his Coreg were held. He was seen by EP and Cardiology. It was decided to decrease his amiodarone to 200 mg twice daily. Previously, the patient was taking 200 mg once daily. The patient was monitored and his heart rate persisted in the 50s in the afternoon. Therefore, he was advised to hold his amiodarone and his Coreg and resume his amiodarone if his heart rate goes up to 60 or above. He should continue to hold off on his Coreg. He should follow up with Dr. Kirkpatrick, who will call him to set up a possible ablation. He should follow up with his PCP in a week. 2. Anemia: The patient's hemoglobin was 13.6 on the day of discharge. This should be rechecked as an outpatient in a week. DISCHARGE PHYSICAL EXAMINATION: VITAL SIGNS: Temperature 98.7, heart rate 57, respiratory rate 16, O2 saturation 98% on room air, and blood pressure 142/72. GENERAL: The patient is alert, awake, and oriented x3. CVS: Sinus bradycardia. There are no murmurs, rubs, or gallops. LUNGS: Clear to auscultation bilaterally. ABDOMEN: Positive bowel sounds, soft, nontender, and nondistended. EXTREMITIES: No edema. PERTINENT LABORATORY DATA: CBC on 12/16: Unremarkable. Hemoglobin on 12/18: 13.6. BMP on 12/16: Unremarkable. LFTs on 12/16: Unremarkable. Troponin I on 12/17: 0.021, 0.013. TSH: 1.168. IMAGING: Chest x-ray on 12/16: Shows stable appearance of the chest. Echo on 12/18: Shows EF of 45% to 50%. Mild AR. Mild TR. Mild MD. Trace MR. DISCHARGE CONDITION: Stable. ACTIVITY: As tolerated. DIET: Heart healthy diet. DISCHARGE MEDICATIONS: 1. Amiodarone 200 mg b.i.d. 2. Eliquis 5 mg p.o. b.i.d. 3. Atorvastatin 40 mg p.o. q.a.m. 4. Entresto one tablet p.o. b.i.d. DISCHARGE INSTRUCTIONS: The patient to follow up with Dr. Jarod Kirkpatrick for consideration of a possible ablation. Job ID: [id number] [facility]
== END 2019-12-19 17:35 | disposition home or self-care (01) | DRG 309 ==
LOC: ERS 23:14 → 2NO 12-18 02:07
PROVIDERS: ADMIT Internal Medicine; ATTEND Internal Medicine
DX: I48.91 Unspecified atrial fibrillation (principal); I50.22 Chronic systolic (congestive) heart failure; I48.92 Unspecified atrial flutter; D64.9 Anemia, unspecified; J44.9 Chronic obstructive pulmonary disease, unspecified; K21.9 Gastro-esophageal reflux disease without esophagitis; E78.5 Hyperlipidemia, unspecified; I25.10 Atherosclerotic heart disease of native coronary artery without angina pectoris; I11.0 Hypertensive heart disease with heart failure; I42.9 Cardiomyopathy, unspecified; F17.210 Nicotine dependence, cigarettes, uncomplicated; I08.3 Combined rheumatic disorders of mitral, aortic and tricuspid valves; Z90.89 Acquired absence of other organs
CPT/HCPCS: 36415; 71045; 80053; 82550; 82565; 83735; 84443; 84484; 85014; 85018; 85025; 85049; 93005; 93010; 93306; 94760; 96365; J0282; J7070

== ENCOUNTER 2020-11-08 21:54 | Inpatient (IN) | payer MEDICARE ==
[2020-11-08 22:28] LABS: #Basophils 0.1 thou/uL (0.0-0.2); #Eosinphils 0.2 thou/uL (0.0-0.7); #Lymphocytes 2.6 thou/uL (1.20-3.40); #Monocytes 0.7 thou/uL (0.11-0.59); #Neutrophils 4.8 thou/uL (1.40-6.50); %Basophils 0.6 % (0.0-1.0); %Eosinophils 2.1 % (0.0-10.0); %Lymphocytes 31.1 % (21.0-51.0); %Monocytes 8.5 % (0.0-10.0); %Neutrophils 57.6 % (42.0-75.0); Hemoglobin 13.9 g/dL (14.0-18.0); Mean Corpuscular HGB CONC 34.9 g/dL (32.0-36.0); Mean Corpuscular Hemoglobin 32.6 pg (27.0-31.0); Mean Corpuscular Volume 93.6 fL (78.0-98.0); Mean Platelet Volume 8.1 fL (7.4-10.4); Platelet Count 281 thou/uL (130-400); RBC Distribution Width 11.6 % (11.5-14.5); Red Blood Cell (RBC) Count 4.26 mill/uL (4.70-6.10); White Blood Cell (WBC) Count 8.4 thou/uL (4.8-10.8)
[2020-11-08 22:47] LABS: Digoxin Less than 0.15 ng/mL (0.8-2.0)
[2020-11-08 22:50] LABS: ALT (SGPT) 11 U/L (8-55); AST (SGOT) 13 U/L (5-34); Albumin 3.8 g/dL (3.4-4.8); Alkaline Phosphatase 103 U/L (40-110); Anion Gap 13 mmol/L (10-20); BUN (Urea Nitrogen) 12 mg/dL (8.4-25.7); Bilirubin, Total 0.4 mg/dL (0.2-1.2); Calc. Creatinine Clearance 0 mL/min (70-130); Calcium 9.5 mg/dL (7.8-10.44); Carbon Dioxide 26 mmol/L (23-31); Chloride 104 mmol/L (98-107); Globulin 2.3 g/dL (2.4-3.5); Glucose 117 mg/dL (83-110); Lipase 16 U/L (8-78); Potassium 3.8 mmol/L (3.5-5.1); Protein, Total 6.1 g/dL (5.8-8.1); Sodium 139 mmol/L (136-145)
[2020-11-09] MEDS ORDERED: Ondansetron PF 4 MG/2 ML Vial IVP PRN (01:42)
[2020-11-09 01:49] LABS: Troponin I Less than 0.010 ng/mL (< 0.028)
[2020-11-09] MEDS ORDERED: Nitroglycerin 0.4 MG TAB (25 Tab Bottle) SL PRN (02:09)
[2020-11-09] MEDS ORDERED: Aspirin 81 mg Enteric Coated Tablet PO SCH (02:15)
[2020-11-09] MEDS ORDERED: Aspirin Chewable 81 MG TAB ONE (03:39)
[2020-11-09] MEDS: Acetaminophen 325 MG TAB PO PRN ×2 (03:45→13:13)
[2020-11-09 04:30] LABS: #Basophils 0.1 thou/uL (0.0-0.2); #Eosinphils 0.2 thou/uL (0.0-0.7); #Lymphocytes 3.1 thou/uL (1.20-3.40); #Neutrophils 4.2 thou/uL (1.40-6.50); %Basophils 0.9 % (0.0-1.0); %Eosinophils 2.6 % (0.0-10.0); %Monocytes 11.5 % (0.0-10.0); %Neutrophils 48.9 % (42.0-75.0); Hemoglobin 13.1 g/dL (14.0-18.0); Mean Corpuscular HGB CONC 33.9 g/dL (32.0-36.0); Mean Corpuscular Hemoglobin 31.9 pg (27.0-31.0); Mean Corpuscular Volume 94.2 fL (78.0-98.0); Mean Platelet Volume 7.9 fL (7.4-10.4); Platelet Count 260 thou/uL (130-400); RBC Distribution Width 11.6 % (11.5-14.5); Red Blood Cell (RBC) Count 4.11 mill/uL (4.70-6.10); White Blood Cell (WBC) Count 8.5 thou/uL (4.8-10.8)
[2020-11-09 04:51] LABS: Anion Gap 9 mmol/L (10-20); BUN (Urea Nitrogen) 14 mg/dL (8.4-25.7); Calc. Creatinine Clearance 79 mL/min (70-130); Calcium 9.6 mg/dL (7.8-10.44); Carbon Dioxide 30 mmol/L (23-31); Chloride 103 mmol/L (98-107); Glucose 101 mg/dL (83-110); Potassium 3.6 mmol/L (3.5-5.1); Sodium 138 mmol/L (136-145)
[2020-11-09 04:54] LABS: Troponin I 0.014 ng/mL (< 0.028)
[2020-11-09] MEDS ORDERED: Acetaminophen 325 MG TAB ONE ×2 (05:10→12:49)
[2020-11-09] MEDS ORDERED: Carvedilol 6.25 MG TAB PO SCH (09:00)
[2020-11-09] MEDS ORDERED: Famotidine 20 MG TAB ONE (09:18)
[2020-11-09] MEDS: Famotidine 20 MG TAB PO SCH ×2 (09:28→20:52)
[2020-11-09] MEDS: Atorvastatin Calcium 40 MG TAB PO SCH (09:28)
[2020-11-09] MEDS: Tamsulosin HCl 0.4 MG CAP PO SCH (09:28)
[2020-11-09] MEDS: Apixaban 5 MG TAB PO SCH ×2 (09:28→20:52)
[2020-11-09 10:04] LABS: SARS-CoV-2 PCR by NAA Not Detected (NotDetected)
[2020-11-09] MEDS ORDERED: Sotalol HCl 80 MG TAB PO SCH ×2 (10:30→11:00)
[2020-11-09] MEDS ORDERED: Acetaminophen 500 MG TAB ONE (12:48)
[2020-11-09 18:26] VITALS: BMI 21.9
[2020-11-09] MEDS: Sotalol HCl 80 MG TAB PO SCH (21:07)
[2020-11-10] MEDS: traMADol HCl 50 MG TAB PO PRN ×2 (00:06→06:01)
[2020-11-10 06:04] LABS: #Basophils 0.1 thou/uL (0.0-0.2); #Eosinphils 0.2 thou/uL (0.0-0.7); #Lymphocytes 3.5 thou/uL (1.20-3.40); #Monocytes 0.9 thou/uL (0.11-0.59); #Neutrophils 5.4 thou/uL (1.40-6.50); %Basophils 0.6 % (0.0-1.0); %Eosinophils 2.2 % (0.0-10.0); %Lymphocytes 34.4 % (21.0-51.0); %Neutrophils 53.9 % (42.0-75.0); Hemoglobin 13.7 g/dL (14.0-18.0); Mean Corpuscular HGB CONC 33.7 g/dL (32.0-36.0); Mean Corpuscular Hemoglobin 31.7 pg (27.0-31.0); Mean Corpuscular Volume 94.2 fL (78.0-98.0); Mean Platelet Volume 8.1 fL (7.4-10.4); Platelet Count 289 thou/uL (130-400); RBC Distribution Width 11.8 % (11.5-14.5); Red Blood Cell (RBC) Count 4.32 mill/uL (4.70-6.10); White Blood Cell (WBC) Count 10.1 thou/uL (4.8-10.8)
[2020-11-10 06:22] LABS: Anion Gap 12 mmol/L (10-20); BUN (Urea Nitrogen) 15 mg/dL (8.4-25.7); Calc. Creatinine Clearance 81 mL/min (70-130); Calcium 9.6 mg/dL (7.8-10.44); Carbon Dioxide 25 mmol/L (23-31); Chloride 105 mmol/L (98-107); Glucose 88 mg/dL (83-110); Potassium 4.3 mmol/L (3.5-5.1); Sodium 138 mmol/L (136-145)
[2020-11-10] MEDS: Apixaban 5 MG TAB PO SCH (09:11)
[2020-11-10] MEDS: Atorvastatin Calcium 40 MG TAB PO SCH (09:11)
[2020-11-10] MEDS: Famotidine 20 MG TAB PO SCH ×2 (09:11→21:57)
[2020-11-10] MEDS: Sotalol HCl 80 MG TAB PO SCH ×2 (09:12→21:58)
[2020-11-10] MEDS: Tamsulosin HCl 0.4 MG CAP PO SCH (09:13)
[2020-11-10] MEDS: Acetaminophen 325 MG TAB PO PRN (12:51)
[2020-11-10] MEDS ORDERED: Enoxaparin Sodium 60 MG/0.6 ML SYRINGE SC SCH (21:00)
[2020-11-11] MEDS: Sotalol HCl 80 MG TAB PO SCH ×2 (05:24→20:11)
[2020-11-11] MEDS ORDERED: Midazolam HCl 2 mg/2 ml Vial ONE (07:26)
[2020-11-11] MEDS ORDERED: Propofol 1,000 MG/100 ML VIAL IV ONE (07:26)
[2020-11-11] MEDS ORDERED: Fentanyl 100 MCG/2 ML VIAL ONE (07:26)
[2020-11-11] MEDS: Atorvastatin Calcium 40 MG TAB PO SCH (07:33)
[2020-11-11] MEDS: Famotidine 20 MG TAB PO SCH ×2 (07:33→20:17)
[2020-11-11] MEDS: Tamsulosin HCl 0.4 MG CAP PO SCH (07:33)
[2020-11-11 07:52] LABS: #Eosinphils 0.1 thou/uL (0.0-0.7); #Lymphocytes 2.4 thou/uL (1.20-3.40); #Monocytes 0.8 thou/uL (0.11-0.59); #Neutrophils 5.8 thou/uL (1.40-6.50); %Basophils 0.3 % (0.0-1.0); %Eosinophils 1.1 % (0.0-10.0); %Lymphocytes 26.4 % (21.0-51.0); %Monocytes 9.1 % (0.0-10.0); %Neutrophils 63.1 % (42.0-75.0); Hemoglobin 13.3 g/dL (14.0-18.0); Mean Corpuscular HGB CONC 33.1 g/dL (32.0-36.0); Mean Corpuscular Hemoglobin 30.9 pg (27.0-31.0); Mean Corpuscular Volume 93.4 fL (78.0-98.0); Mean Platelet Volume 8.5 fL (7.4-10.4); Platelet Count 281 thou/uL (130-400); RBC Distribution Width 11.6 % (11.5-14.5); White Blood Cell (WBC) Count 9.2 thou/uL (4.8-10.8)
[2020-11-11 08:16] LABS: Anion Gap 12 mmol/L (10-20); BUN (Urea Nitrogen) 13 mg/dL (8.4-25.7); Calc. Creatinine Clearance 82 mL/min (70-130); Calcium 9.5 mg/dL (7.8-10.44); Carbon Dioxide 27 mmol/L (23-31); Chloride 103 mmol/L (98-107); Glucose 93 mg/dL (83-110); Potassium 3.8 mmol/L (3.5-5.1); Sodium 138 mmol/L (136-145)
[2020-11-11] MEDS ORDERED: ePHEDrine Sulfate 50 MG/10 ML VIAL ONE (08:45)
[2020-11-11] MEDS ORDERED: CEFAZOLIN 1 GM VIAL ONE (09:04)
[2020-11-11] MEDS ORDERED: Gentamicin 80 MG/2 ML VIAL ONE (09:04)
[2020-11-11] MEDS ORDERED: Iopamidol 370 76% 50 ML VIAL FS ONE (11:59)
[2020-11-11] MEDS: traMADol HCl 50 MG TAB PO PRN (15:16)
[2020-11-11] MEDS ORDERED: Acetaminophen/Codeine 30-300mg Tablet PO PRN (15:30)
[2020-11-11] MEDS ORDERED: traMADol HCl 50 MG TAB PO PRN (15:34)
[2020-11-11] MEDS: Acetaminophen/Codeine 30-300mg Tablet PO PRN ×2 (17:00→23:30)
[2020-11-11] MEDS: ceFAZolin 1 GM/D5W 1 GM in Premix Bag 1 BAG IVPB SCH (18:18)
[2020-11-11] MEDS ORDERED: Apixaban 5 MG TAB PO SCH (21:00)
[2020-11-12] MEDS: ceFAZolin 1 GM/D5W 1 GM in Premix Bag 1 BAG IVPB SCH (01:46)
[2020-11-12] MEDS: Cephalexin 250 MG CAP PO SCH ×2 (05:06→12:26)
[2020-11-12] MEDS: Sotalol HCl 80 MG TAB PO SCH (09:12)
[2020-11-12] MEDS: Tamsulosin HCl 0.4 MG CAP PO SCH (09:12)
[2020-11-12] MEDS: Famotidine 20 MG TAB PO SCH (09:15)
[2020-11-12] MEDS: Atorvastatin Calcium 40 MG TAB PO SCH (09:16)
[2020-11-12 15:42] VITALS: BP 119/66; TEMP 98.5
[2020-11-12] MEDS ORDERED: Apixaban 5 MG TAB PO SCH (21:00)
== END 2020-11-12 18:50 | disposition home or self-care (01) | DRG 227 ==
LOC: ERS 21:54 → ERHOLD 11-09 00:11 → 2SW 11-09 18:07 → OBSVTOIN 11-10 12:09
PROVIDERS: ADMIT Internal Medicine; ATTEND Internal Medicine
PROC: 0JH608Z Insertion of Defibrillator Generator into Chest Subcutaneous Tissue and Fascia, Open Approach (ICD-10-PCS; principal; 2020-11-11)
PROC: 02HK3KZ Insertion of Defibrillator Lead into Right Ventricle, Percutaneous Approach (ICD-10-PCS; 2020-11-11)
PROC: 02H63KZ Insertion of Defibrillator Lead into Right Atrium, Percutaneous Approach (ICD-10-PCS; 2020-11-11)
DX: I48.0 Paroxysmal atrial fibrillation (principal); I50.22 Chronic systolic (congestive) heart failure; L76.32 Postprocedural hematoma of skin and subcutaneous tissue following other procedure; R00.1 Bradycardia, unspecified; Z20.822 Contact with and (suspected) exposure to COVID-19; N40.0 Benign prostatic hyperplasia without lower urinary tract symptoms; J44.9 Chronic obstructive pulmonary disease, unspecified; I11.0 Hypertensive heart disease with heart failure; K21.9 Gastro-esophageal reflux disease without esophagitis; F17.210 Nicotine dependence, cigarettes, uncomplicated; E78.5 Hyperlipidemia, unspecified; I42.8 Other cardiomyopathies; I48.92 Unspecified atrial flutter; I49.5 Sick sinus syndrome; I49.3 Ventricular premature depolarization; I08.1 Rheumatic disorders of both mitral and tricuspid valves; Y83.8 Other surgical procedures as the cause of abnormal reaction of the patient, or of later complication, without mention of misadventure at the time of the procedure; Z88.8 Allergy status to other drugs, medicaments and biological substances; Z79.899 Other long term (current) drug therapy; Z79.01 Long term (current) use of anticoagulants; Z98.52 Vasectomy status; Z82.49 Family history of ischemic heart disease and other diseases of the circulatory system; Z89.021 Acquired absence of right finger(s); Z95.5 Presence of coronary angioplasty implant and graft
CPT/HCPCS: 33249; 36005; 36415; 71045; 75820; 76942; 80048; 80053; 80162; 83690; 84484; 85025; 87635; 93005; 93010; 93306; 93641; 94760; 96372; C1721; C1777; C1898; G0378; J0690; J1580; J1650; J2250; J2704; J3010; Q9967; U0003; U0005

== ENCOUNTER 2021-04-20 06:51 | Day surgery (SDC) | payer MEDICARE ==
[2021-04-19 10:06] VITALS: BMI 22.4
[2021-04-20 08:05] LABS: SARS-CoV-2 NAA Rapid Test Not Detected (NotDetected)
[2021-04-20] MEDS ORDERED: PROPOFOL 200 MG/20 ML VIAL ONE (08:51)
== END 2021-04-20 10:00 | disposition home or self-care (01) ==
LOC: SDC 06:51
PROVIDERS: ATTEND Internal Medicine Gastroenterology
PROC: 0DJ08ZZ Inspection of Upper Intestinal Tract, Via Natural or Artificial Opening Endoscopic (ICD-10-PCS; principal; 2021-04-20)
DX: D64.9 Anemia, unspecified (principal); R10.13 Epigastric pain; R10.11 Right upper quadrant pain; R07.9 Chest pain, unspecified; R79.89 Other specified abnormal findings of blood chemistry; I42.9 Cardiomyopathy, unspecified; I50.9 Heart failure, unspecified; M54.30 Sciatica, unspecified side; K59.00 Constipation, unspecified; R19.7 Diarrhea, unspecified; I48.91 Unspecified atrial fibrillation; E78.5 Hyperlipidemia, unspecified; I48.92 Unspecified atrial flutter; Z86.010 Personal history of colon polyps; Z87.891 Personal history of nicotine dependence; Z80.0 Family history of malignant neoplasm of digestive organs; Z79.01 Long term (current) use of anticoagulants; Z79.82 Long term (current) use of aspirin; Z79.899 Other long term (current) drug therapy; Z88.8 Allergy status to other drugs, medicaments and biological substances; Z95.810 Presence of automatic (implantable) cardiac defibrillator; Z20.822 Contact with and (suspected) exposure to COVID-19
CPT/HCPCS: 43235; U0002; J2704

== ENCOUNTER 2021-05-26 10:31 | Outpatient (CLI) | payer MEDICARE ==
[2021-05-28 18:42] LABS: Cardiolipin IgA Ab 0.3 APL-U/mL (<14 Negative); Cardiolipin IgM Ab Less than 0.8 MPL-U/mL (<10 Negative); EliA APS New Method **** NEW METHOD ****
== END 2021-05-26 10:32 | disposition home or self-care (01) ==
LOC: LABBT 10:31
PROVIDERS: ATTEND Internal Medicine Gastroenterology
DX: Z01.818 Encounter for other preprocedural examination (principal); R10.11 Right upper quadrant pain; R79.89 Other specified abnormal findings of blood chemistry; D64.9 Anemia, unspecified; I48.19 Other persistent atrial fibrillation; Z91.81 History of falling
CPT/HCPCS: 86147; 93005; 93010

== ENCOUNTER 2021-05-26 11:30 | Inpatient (IN) | payer MEDICARE ==
[2021-05-26 11:35] LABS: Hemoglobin 14.2 g/dL (13.5-17.5); Mean Corpuscular HGB CONC 32.9 g/dL (32.0-36.0); Mean Corpuscular Hemoglobin 30.5 pg (27.0-33.0); Mean Corpuscular Volume 92.5 fl (81.2-95.1); Mean Platelet Volume 10.2 fl (7.4-10.4); Platelet Count 292 10x3/uL (150-450); RBC Distribution Width 13.6 % (11.5-14.5); Red Blood Cell (RBC) Count 4.66 10x6/uL (4.32-5.72); White Blood Cell (WBC) Count 9.3 10x3/uL (3.5-10.5)
[2021-05-26 12:02] LABS: ALT (SGPT) 13 U/L (8-55); AST (SGOT) 13 U/L (5-34); Albumin 4.2 g/dL (3.4-4.8); Alkaline Phosphatase 94 U/L (40-110); Anion Gap 12 mmol/L (10-20); BUN (Urea Nitrogen) 13 mg/dL (8.4-25.7); Bilirubin, Total 0.5 mg/dL (0.2-1.2); Calc. Creatinine Clearance 0 mL/min (70-130); Calcium 9.4 mg/dL (7.8-10.44); Carbon Dioxide 28 mmol/L (23-31); Chloride 102 mmol/L (98-107); Globulin 2.3 g/dL (2.4-3.5); Glucose 84 mg/dL (83-110); Potassium 4.5 mmol/L (3.5-5.1); Protein, Total 6.5 g/dL (5.8-8.1); Sodium 137 mmol/L (136-145)
[2021-05-26 12:03] LABS: PTT 29.9 sec (22.0-33.0); Prothrombin Time 10.9 sec (9.5-12.1)
[2021-05-27 00:05] LABS: SARS-CoV-2 PCR by NAA Not Detected (NotDetected)
[2021-05-27 12:34] VITALS: BMI 22.1
[2021-05-30] MEDS ORDERED: Fentanyl 100 MCG/2 ML VIAL ONE ×2 (10:24→13:17)
[2021-05-30] MEDS ORDERED: Iopamidol 370 76% 100 ML VIAL ONE (10:26)
[2021-05-30] MEDS ORDERED: Heparin 10,000 UNITS/ 10 ML VIAL ONE (10:46)
[2021-05-30] MEDS ORDERED: Protamine Sulfate 50 MG/5 ML VIAL ONE ×2 (10:46→13:16)
[2021-05-30] MEDS ORDERED: Lidocaine 1% PF 5 ML VIAL ONE (11:00)
[2021-05-30] MEDS ORDERED: Glycopyrrolate 0.2 MG/ML 5 ML SYRINGE ONE (11:00)
[2021-05-30] MEDS ORDERED: Dexamethasone 20 MG/5 ML VIAL ONE (11:00)
[2021-05-30] MEDS ORDERED: PHENYLEPHRINE-NS 100 MCG/ML 10 ML SYRINGE ONE (11:00)
[2021-05-30] MEDS ORDERED: PROPOFOL 200 MG/20 ML VIAL ONE (11:00)
[2021-05-30] MEDS ORDERED: Ondansetron PF 4 MG/2 ML Vial ONE (11:00)
[2021-05-30] MEDS ORDERED: Rocuronium Bromide 10 MG/ML (10ML VIAL) ONE (11:00)
[2021-05-30] MEDS ORDERED: Meperidine HCl/PF 25 MG/ML VIAL ONE (13:23)
== END 2021-05-30 17:28 | disposition home or self-care (01) | DRG 274 ==
LOC: SURG A 05-30 08:29 → EDSTATUS 05-30 11:30
PROVIDERS: ADMIT Internal Medicine Cardiovascular Disease; ATTEND Internal Medicine Cardiovascular Disease
PROC: 02L73DK Occlusion of Left Atrial Appendage with Intraluminal Device, Percutaneous Approach (ICD-10-PCS; principal; 2021-05-30)
PROC: B24BZZ4 Ultrasonography of Heart with Aorta, Transesophageal (ICD-10-PCS; 2021-05-30)
DX: I48.19 Other persistent atrial fibrillation (principal); Z00.6 Encounter for examination for normal comparison and control in clinical research program; Z20.822 Contact with and (suspected) exposure to COVID-19; I11.0 Hypertensive heart disease with heart failure; I25.10 Atherosclerotic heart disease of native coronary artery without angina pectoris; E78.5 Hyperlipidemia, unspecified; J44.9 Chronic obstructive pulmonary disease, unspecified; F17.210 Nicotine dependence, cigarettes, uncomplicated; I50.9 Heart failure, unspecified; Z91.81 History of falling; Z79.01 Long term (current) use of anticoagulants; Z79.899 Other long term (current) drug therapy; I42.9 Cardiomyopathy, unspecified
CPT/HCPCS: 33340; 36430; 80053; 85027; 85347; 85610; 85730; 86850; 86900; 86901; 93306; 93312; C1759; J1100; J1644; J2175; J2405; J2704; J2720; J3010; U0003; U0005

== ENCOUNTER 2021-07-07 10:00 | Outpatient (CLI) | payer MEDICARE ==
[2021-07-07 11:08] LABS: Hemoglobin 13.1 g/dL (13.5-17.5); Mean Corpuscular HGB CONC 32.3 g/dL (32.0-36.0); Mean Corpuscular Hemoglobin 30.4 pg (27.0-33.0); Mean Corpuscular Volume 94.2 fl (81.2-95.1); Platelet Count 311 10x3/uL (150-450); RBC Distribution Width 13.2 % (11.5-14.5); Red Blood Cell (RBC) Count 4.31 10x6/uL (4.32-5.72); White Blood Cell (WBC) Count 10.2 10x3/uL (3.5-10.5)
[2021-07-07 11:11] LABS: PTT 29.3 sec (22.0-33.0); Prothrombin Time 10.9 sec (9.5-12.1)
[2021-07-07 11:12] LABS: Anion Gap 12 mmol/L (10-20); BUN (Urea Nitrogen) 11 mg/dL (8.4-25.7); Calc. Creatinine Clearance 0 mL/min (70-130); Calcium 9.2 mg/dL (7.8-10.44); Carbon Dioxide 29 mmol/L (23-31); Chloride 103 mmol/L (98-107); Glucose 118 mg/dL (83-110); Potassium 4.5 mmol/L (3.5-5.1); Sodium 139 mmol/L (136-145)
[2021-07-07 18:23] LABS: SARS-CoV-2 PCR by NAA Not Detected (NotDetected)
== END 2021-07-07 10:01 | disposition home or self-care (01) ==
LOC: LABBT 10:00
PROVIDERS: ATTEND Internal Medicine Cardiovascular Disease
DX: Z01.818 Encounter for other preprocedural examination (principal); Z20.822 Contact with and (suspected) exposure to COVID-19
CPT/HCPCS: 80048; 85027; 85610; 85730; 93005; U0003; U0005; 93010

== ENCOUNTER 2021-07-11 08:29 | Day surgery (SDC) | payer MEDICARE ==
[2021-07-07 13:03] VITALS: BMI 22.1
[2021-07-11] MEDS ORDERED: PROPOFOL 40 ML ONE (10:56)
[2021-07-11] MEDS ORDERED: PHENYLEPHRINE-NS 100 MCG/ML 10 ML SYRINGE ONE (10:56)
[2021-07-11] MEDS ORDERED: Lidocaine 2% PF 100 mg/5 ml Syringe ONE (10:56)
[2021-07-11] MEDS ORDERED: PROPOFOL 200 MG/20 ML VIAL ONE (11:07)
[2021-07-11] MEDS ORDERED: Lidocaine 1% PF 5 ML VIAL ONE (11:07)
== END 2021-07-11 12:31 | disposition home or self-care (01) ==
LOC: UNDOADMIN 08:29 → SDC/OP 08:29 → SURG A 08:29 → EDSTATUS 10:15 → UNDODISIN 12:31 → SDC/OP 12:31
PROVIDERS: ATTEND Internal Medicine Cardiovascular Disease
PROC: B246ZZ4 Ultrasonography of Right and Left Heart, Transesophageal (ICD-10-PCS; principal; 2021-07-11)
DX: I48.19 Other persistent atrial fibrillation (principal); I34.0 Nonrheumatic mitral (valve) insufficiency; I42.9 Cardiomyopathy, unspecified; I50.20 Unspecified systolic (congestive) heart failure; Z79.01 Long term (current) use of anticoagulants; Z79.82 Long term (current) use of aspirin; Z79.899 Other long term (current) drug therapy; Z88.5 Allergy status to narcotic agent; Z88.8 Allergy status to other drugs, medicaments and biological substances; Z95.810 Presence of automatic (implantable) cardiac defibrillator; Z95.818 Presence of other cardiac implants and grafts
CPT/HCPCS: 93312; J2001; J2704

== ENCOUNTER 2022-05-01 12:15 | Inpatient (IN) | payer MEDICARE ==
[2022-05-01 13:28] LABS: Hemoglobin 12.5 g/dL (13.5-17.5); Mean Corpuscular HGB CONC 33.4 g/dL (32.0-36.0); Mean Corpuscular Hemoglobin 31.3 pg (27.0-33.0); Mean Corpuscular Volume 93.5 fl (81.2-95.1); Mean Platelet Volume 10.5 fl (7.4-10.4); Platelet Count 243 10x3/uL (150-450); RBC Distribution Width 13.2 % (11.5-14.5); White Blood Cell (WBC) Count 7.3 10x3/uL (3.5-10.5)
[2022-05-01 14:06] LABS: Anion Gap 13 mmol/L (10-20); BUN (Urea Nitrogen) 14 mg/dL (8.4-25.7); Calc. Creatinine Clearance 0 mL/min (70-130); Carbon Dioxide 27 mmol/L (23-31); Chloride 106 mmol/L (98-107); Estimated GFR 92; Glucose 130 mg/dL (83-110); Potassium 4.1 mmol/L (3.5-5.1); Sodium 142 mmol/L (136-145)
[2022-05-04] MEDS ORDERED: Protamine Sulfate 50 MG/5 ML VIAL ONE ×2 (06:48→08:38)
[2022-05-04] MEDS ORDERED: Dexamethasone 4 mg/ml Vial ONE (06:48)
[2022-05-04] MEDS ORDERED: Heparin 5,000 UNITS/ML VIAL ONE (06:48)
[2022-05-04] MEDS ORDERED: Bupivacaine PF 0.5% 30 ML VIAL ONE (06:48)
[2022-05-04] MEDS ORDERED: EPINEPHrine 1 MG/ML AMP ONE (06:48)
[2022-05-04] MEDS ORDERED: Phenylephrine 10 MG/ML VIAL ONE (06:52)
[2022-05-04] MEDS ORDERED: fentaNYL Citrate/PF 100 MCG/2 ML SYRINGE ONE (06:52)
[2022-05-04] MEDS ORDERED: CEFAZOLIN 2 GM VIAL ONE ×2 (07:16→14:26)
[2022-05-04] MEDS ORDERED: Sodium Chloride 0.9% 100 ML ONE ×2 (07:16→14:27)
[2022-05-04] MEDS ORDERED: Rocuronium Bromide 10 MG/ML (10ML VIAL) ONE (07:22)
[2022-05-04] MEDS ORDERED: PROPOFOL 200 MG/20 ML VIAL ONE (07:22)
[2022-05-04] MEDS ORDERED: Ondansetron PF 4 MG/2 ML Vial ONE (07:22)
[2022-05-04] MEDS ORDERED: ePHEDrine 50 MG/ML VIAL ONE (07:22)
[2022-05-04] MEDS ORDERED: PHENYLEPHRINE-NS 100 MCG/ML 10 ML SYRINGE ONE (07:22)
[2022-05-04] MEDS ORDERED: NEOSTIGMINE 3 MG/3 ML SYR 3 MG/3 ML SYRINGE ONE (07:22)
[2022-05-04] MEDS ORDERED: Glycopyrrolate 0.2 MG/ML 5 ML SYRINGE ONE (07:22)
[2022-05-04] MEDS ORDERED: Dexamethasone 20 MG/5 ML VIAL ONE (07:22)
[2022-05-04] MEDS ORDERED: hydrALAZINE 20 MG/ML VIAL SLOW IVP PRN (09:17)
[2022-05-04] MEDS ORDERED: Acetaminophen 325 MG TAB PO PRN (09:17)
[2022-05-04] MEDS ORDERED: Ondansetron PF 4 MG/2 ML Vial IVP PRN (09:17)
[2022-05-04] MEDS ORDERED: Fentanyl 100 MCG/2 ML VIAL SLOW IVP PRN ×2 (09:17)
[2022-05-04] MEDS ORDERED: traMADol HCl 50 MG TAB PO PRN ×2 (09:17)
[2022-05-04] MEDS ORDERED: Fentanyl 100 MCG/2 ML VIAL ONE (10:01)
[2022-05-04] MEDS ORDERED: CEFAZOLIN 1 GM VIAL ONE ×2 (14:25)
[2022-05-04] MEDS: CEFAZOLIN 2 GM in Sodium Chloride 0.9% 100 ML IVPB SCH ×2 (14:30→21:28)
[2022-05-04] MEDS: D5 1/2 NS w/20 mEq KCL 1,000 ML IV SCH ×3 (18:03→22:10)
[2022-05-04] MEDS ORDERED: Tamsulosin HCl 0.4 MG CAP PO SCH (21:00)
[2022-05-04] MEDS: Sotalol HCl 80 MG TAB PO SCH (21:24)
[2022-05-04 23:53] VITALS: TEMP 98.4
[2022-05-05] MEDS: CEFAZOLIN 2 GM in Sodium Chloride 0.9% 100 ML IVPB SCH (05:29)
[2022-05-05] MEDS ORDERED: Non-Formulary Item 1 EACH (Sotalol Hcl [Sotalol] 120 MG Tablet) PO SCH (09:00)
[2022-05-05] MEDS ORDERED: FLU VACC QS2022-23(65YR UP)/PF 240 MCG/0.7 ML SYRINGE IM ONE (09:00)
[2022-05-05] MEDS ORDERED: Aspirin 81 mg Enteric Coated Tablet PO SCH (09:00)
[2022-05-05] MEDS ORDERED: Clopidogrel Bisulfate 75 MG TAB PO SCH (09:00)
[2022-05-05] MEDS ORDERED: Losartan 25 MG TAB PO SCH (09:00)
[2022-05-05] MEDS: Sotalol HCl 80 MG TAB PO SCH (09:32)
[2022-05-05 10:22] VITALS: BMI 23.0
[2022-05-05 12:19] VITALS: BP 147/75
[2022-05-05] MEDS ORDERED: Atorvastatin Calcium 40 MG TAB PO SCH (21:00)
[2022-05-05] MEDS ORDERED: Tamsulosin HCl 0.4 MG CAP PO SCH (21:00)
== END 2022-05-05 13:00 | disposition home or self-care (01) | DRG 254 ==
LOC: SURG A 05-04 06:01 → 2NO 05-04 16:58
PROVIDERS: ADMIT Thoracic Surgery (Cardiothoracic Vascular Surgery); ATTEND Thoracic Surgery (Cardiothoracic Vascular Surgery)
PROC: 04CK0ZZ Extirpation of Matter from Right Femoral Artery, Open Approach (ICD-10-PCS; principal; 2022-05-04)
PROC: 04UK0KZ Supplement Right Femoral Artery with Nonautologous Tissue Substitute, Open Approach (ICD-10-PCS; 2022-05-04)
DX: I73.9 Peripheral vascular disease, unspecified (principal); F17.210 Nicotine dependence, cigarettes, uncomplicated; Z28.21 Immunization not carried out because of patient refusal; Z79.899 Other long term (current) drug therapy; Z79.82 Long term (current) use of aspirin; Z82.49 Family history of ischemic heart disease and other diseases of the circulatory system; Z88.8 Allergy status to other drugs, medicaments and biological substances; Z98.890 Other specified postprocedural states; Z95.810 Presence of automatic (implantable) cardiac defibrillator
CPT/HCPCS: 80048; 85027; 86850; 86900; 86901; C1768; J0171; J0690; J1100; J1644; J2370; J2405; J2704; J2720; J3010; J3490; S0020

== ENCOUNTER 2024-05-12 06:23 | Day surgery (SDC) | payer MEDICARE ==
[2024-05-09 09:28] VITALS: BMI 21.9
[2024-05-12] MEDS ORDERED: Lidocaine 2% PF 5 ML VIAL ONE (07:02)
[2024-05-12] MEDS ORDERED: ePHEDrine Sulfate 50 MG/10 ML VIAL ONE (07:02)
[2024-05-12] MEDS ORDERED: Midazolam HCl 2 mg/2 ml Vial ONE (07:02)
[2024-05-12] MEDS ORDERED: Etomidate 40 MG (20 mL) VIAL ONE (07:02)
[2024-05-12] MEDS ORDERED: Ketamine In 0.9 % NaCl 50 MG/5 ML SYRINGE ONE (07:18)
[2024-05-12] MEDS ORDERED: PROPOFOL 200 MG/20 ML VIAL ONE (08:45)
[2024-05-12] MEDS ORDERED: Labetalol HCl 100 MG/20 ML VIAL ONE (08:53)
== END 2024-05-12 10:27 | disposition home or self-care (01) ==
LOC: SDC 06:23
PROVIDERS: ATTEND Internal Medicine Gastroenterology
PROC: 0DBK8ZZ Excision of Ascending Colon, Via Natural or Artificial Opening Endoscopic (ICD-10-PCS; principal; 2024-05-12)
PROC: 0DBL8ZZ Excision of Transverse Colon, Via Natural or Artificial Opening Endoscopic (ICD-10-PCS; 2024-05-12)
DX: Z12.11 Encounter for screening for malignant neoplasm of colon (principal); D12.2 Benign neoplasm of ascending colon; D12.3 Benign neoplasm of transverse colon; K57.30 Diverticulosis of large intestine without perforation or abscess without bleeding; I25.10 Atherosclerotic heart disease of native coronary artery without angina pectoris; I48.91 Unspecified atrial fibrillation; J44.9 Chronic obstructive pulmonary disease, unspecified; N40.1 Benign prostatic hyperplasia with lower urinary tract symptoms; E78.5 Hyperlipidemia, unspecified; I10 Essential (primary) hypertension; Z95.0 Presence of cardiac pacemaker; Z95.818 Presence of other cardiac implants and grafts; Z98.890 Other specified postprocedural states; Z90.89 Acquired absence of other organs; Z79.02 Long term (current) use of antithrombotics/antiplatelets; Z79.899 Other long term (current) drug therapy; Z88.8 Allergy status to other drugs, medicaments and biological substances; Z87.891 Personal history of nicotine dependence; Z80.0 Family history of malignant neoplasm of digestive organs; Z86.000 Personal history of in-situ neoplasm of breast
CPT/HCPCS: 45380; 45385; J2250; J2704; J3490; 88305